=== PATIENT | male | born 1950 | race Caucasian/White ===

== ENCOUNTER 2018-11-03 09:25 | Observation (INO) ==
[2018-11-03] MEDS ORDERED: ONDANSETRON 4 MG/2 ML VIAL ONE (09:36)
[2018-11-03] MEDS ORDERED: HYDROmorphone 2 MG/ML VIAL ONE (09:36)
[2018-11-03] MEDS ORDERED: 0.9 % SODIUM CHLORIDE 1,000 ML IV ONE (09:44)
[2018-11-03] MEDS ORDERED: ONDANSETRON 4 MG/2 ML VIAL IV ONE (09:44)
[2018-11-03] MEDS ORDERED: HYDROmorphone 2 MG/ML VIAL IV SCH ×2 (09:45→10:00)
[2018-11-03] MEDS ORDERED: KETOROLAC 15 MG/ML VIAL IV ONE (10:06)
--- NOTE | 2018-11-03 10:19 | Emergency Department Note ---
Abdominal Pain HPI - General Chief Complaint: Flank Pain Stated Complaint: Left flank pain Time Seen by Provider: 11/03/18 09:34 Source: patient Mode of arrival: ambulatory Limitations: no limitations - History of Present Illness HPI Narrative: This pleasant 67-year-old male comes emergency room with left flank pain onset around 6:30 AM. He vomited once at home and had some dry heaves here. It feels like his previous stones. He has had lithotripsy a couple of different times. He is tried to drink a lot of water. His urine was dark but not specifically red or pink. Pain radiates some from the left flank into the lateral anterior upper abdomen; none into the groin at this time. REVIEW OF SYSTEMS: No fevers, chills, sweats, chest pain, shortness of breath, diarrhea, constipation, headaches, weakness, dizziness, anxiety, depression. - Related Data Home Medications Medication Instructions Recorded Confirmed CPAP machine, 12cm H2O pressure 1 unit .ROUTE HS 07/18/18 11/03/18 Previous Rx's Medication Instructions Recorded Tamsulosin [Flomax] 0.4 mg PO HS #30 cap 11/04/18 ondansetron HCl 4 mg tablet 4 mg PO TID PRN 5 Days #20 tab 11/04/18 oxycodone-acetaminophen 10 mg-325 1 tab PO Q4H PRN #30 tab 11/04/18 mg tablet Allergies Allergy/AdvReac Type Severity Reaction Status Date / Time No Known Drug Allergies Allergy Verified 11/03/18 09:29 Abdominal Pain PMH - Past Medical History [facility] Narrative: Medical History (Last Updated 11/03/18 @ 10:21 by Jefferson Mcfarlane DO) Hypertension, essential (Chronic) Sleep apnea (Chronic) Obesity (Chronic) Renal calculi (Chronic 11/17/13) Cholelithiasis and cholecystitis without obstruction (Chronic) Degenerative arthritis of right knee (Chronic) Impotence, 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) Gout (Chronic) Diverticulosis of colon (Chronic) Benign prostatic hyperplasia (BPH) with urinary urgency (Chronic 11/10/13) History of colonic polyps (Chronic) Chronic vasomotor rhinitis (Chronic) Hearing loss (Chronic) Kidney stones (Resolved) Renal cyst (Resolved 11/17/13) Past Surgical History (Last Updated 11/03/18 @ 10:04 by Jefferson Mcfarlane DO) Status post anterior cruciate ligament surgery (Acute) History of cholecystectomy (Acute) History of colonoscopy (Resolved 08/11/13) History of surgery (Resolved) Family History (Last Reviewed 07/31/18 @ 15:03 by Sindi Jefferson CMA) Unknown Atherosclerosis of coronary artery Maternal Grandfather Cardiac abnormality Maternal Grandmother Cardiac abnormality Father Malignant neoplasm of prostate Calculus of kidney Brother Calculus of kidney Medical history: Denies: CVA, DVT, DM, myocardial infarction, pulmonary embolus, TIA Psychiatric history: Denies: anxiety, depression - Social History Smoking status: Former smoker (quit 2012) Alcohol use: Reports: None Drug use: Reports: none. Denies: marijuana Physical Exam Limitations: no limitations General appearance: alert, in no apparent distress, other (Recurringly reporting rather severe pain.) Head: atraumatic, normocephalic Eye: Present: EOMI Neck: Present: trachea midline. Absent: lymphadenopathy, thyromegaly Chest: Present: symmetric chest wall rise Respiratory: Present: normal lung sounds bilaterally. Absent: respiratory distress, wheezes, stridor, accessory muscle use, prolonged expiratory phase Cardiovascular: Present: regular rate, normal rhythm. Absent: systolic murmur, diastolic murmur Abdominal: Present: soft, tenderness (Subjectively). Absent: distention, guarding, rebound, rigidity, organomegaly, mass Abdominal tenderness: Present: LLQ, mild, moderate Extremities: Absent: pedal edema, pretibial edema, calf tenderness Back: Present: CVA tenderness (L) (Mildly). Absent: CVA tenderness (R), spinous process tenderness Neurological: Present: alert, oriented X3 Psychiatric: Present: serious Skin: Present: warm, dry Course Vital Signs Temperature 97.6 F 11/03/18 09:26 Pulse Rate 83 11/03/18 09:26 Respiratory Rate 18 11/03/18 09:26 Blood Pressure 204/98 11/03/18 09:26 Pulse Oximetry (%) 95 11/03/18 09:26 Temperature 97.5 F 11/04/18 09:13 Pulse Rate 85 11/04/18 09:13 Respiratory Rate 16 11/04/18 09:13 Blood Pressure 128/73 11/04/18 09:13 Pulse Oximetry (%) 94 11/04/18 09:13 Abdominal Pain - MDM Narrative Medical decision making narrative: 10:05 AM - onset of pain this morning in the left flank with some radiation and similarities to previous kidney stones. CT scan recently showed a 12 mm in the left calyx. Because of this and the severity of his pain, we will need to repeat the CT to identify location and size of stone. Repeat CT scan demonstrated a 5 and a 6 mm stone in the proximal left ureter. Mild hydronephrosis probably apparent. Multiple other small stones in each kidney, nonobstructing. 11:55 AM - I spoke with Dr. Bass, urologist, who indicates that if pain can be under control this may be managed conservatively and patient will probably be able to pass the stones. His pain is not under control or persist, he is willing to assist in management and intervention. Patient received 15 mg IV Toradol and hydromorphone, several doses, then Morphine - and still required several doses of morphine. After multiple doses of IV occasion and not able to keep his pain under control, Dr. Bass was contacted again and agrees kindly to accept this patient. Holding orders written for. - Lab Data Lab results reviewed: Yes I reviewed the patient's lab results. Result diagrams: 11/03/18 09:35 11/03/18 09:35 Lab Results 11/03/18 11/03/18 Range/Units 09:35 09:35 WBC 6.6 (4.5-11.0) K/mcL RBC 5.74 (4.50-5.90) M/mcL Hgb 17.7 H (13.5-16.5) g/dL Hct 53.5 (41.0-55.0) % MCV 93.2 (80.0-100.0) fL MCH 30.8 (26.0-34.0) pg MCHC 33.0 (31.0-36.0) g/dL RDW 14.2 (11.5-14.5) % Plt Count 349 (140-440) K/mcL MPV 7.9 (7.4-10.4) fL Gran % 68.4 (38.0-78.0) % Lymph % (Auto) 17.2 (15.5-49.0) % [place] % (Auto) 13.2 H (1.0-12.0) % Eos % (Auto) 0.9 (0.0-7.0) % Baso % (Auto) 0.3 (0.0-2.0) % Gran # 4.5 (1.8-8.0) K/mcL Lymph # (Auto) 1.1 L (1.5-4.8) K/mcL [place] # (Auto) 0.9 (0.1-0.9) K/mcL Eos # (Auto) 0.1 (0.0-0.7) K/mcL Baso # (Auto) 0 (0.0-0.3) K/mcL Sodium 137 (133-145) mmol/L Potassium 3.7 (3.3-5.1) mmol/L Chloride 100 (96-108) mmol/L Carbon Dioxide 27 (22-30) mmol/L Anion Gap 10.0 (8-16) BUN 15 (8-23) mg/dl Creatinine 1.1 (0.7-1.2) mg/dl GFR Calculation 68 Glucose 119 H (70-105) mg/dL Calcium 10.1 (8.6-10.4) mg/dl Total Bilirubin 0.7 (0.0-1.0) mg/dL AST 27 (0-37) U/l ALT 34 (0-40) U/l Alkaline Phosphatase 80 (39-117) U/L C-Reactive Protein < 0.3 (0.0-0.8) mg/dl Total Protein 7.6 (5.9-8.4) gm/dL Albumin 4.4 (3.2-5.2) gm/dL Globulin 3.2 (2.2-3.7) gm/dL Albumin/Globulin Ratio 1.4 (1.0-2.3) - Radiology Data Radiology results reviewed: Yes I reviewed the patient's radiology results. Disposition Pt seen by PAINTINGS RESTORER/PA only: No Clinical Impression: Kidney stones, Ureteral colic Disposition: Xfer As Outpt/Obs ([facility]) Condition: Good
--- NOTE | 2018-11-03 10:41 | Cat Scan Report ---
CLINICAL INFORMATION: Left flank pain. History of urolithiasis TECHNIQUE: Axial noncontrast enhanced images through the abdomen and pelvis. Sagittal and coronal reformatted images COMPARISON: Previous examination dated 07/23/2018, 07/12/2018, 06/18/2018 FINDINGS: Multiple renal calculi bilaterally. There are multiple stones in the mid and lower pole collecting systems bilaterally. These are unchanged. There is a 2.2 cm left mid pole cyst and a 3.5 cm left lower pole cyst. There is mild dilatation of the left renal pelvis and proximal ureter. There is a 5 mm stone or stones in the proximal left ureter at the L4 level. There is a 6 mm calculus in the proximal left ureter at the L4-5 level. No right hydronephrosis or hydroureter. No bladder calculus. Lung bases are negative. No parenchymal infiltrate or mass. No pleural fluid. No pericardial fluid. Liver is negative to the limits of noncontrast enhanced examination. No detectable mass. Liver contour is smooth. No evidence for cirrhosis. There is no ascitic fluid. There are surgical clips in the gallbladder fossa. Pancreas is atrophic. No pancreatic mass. No peripancreatic abnormality. Negative spleen. No significant splenomegaly. Adrenal glands are negative. There is diverticulosis in the distal descending colon and sigmoid colon. No significant diverticulitis. No detectable colonic mass. Examination is negative for appendicitis. There is no mechanical small bowel obstruction. No retroperitoneal or mesenteric adenopathy. There is no inguinal or anterior abdominal wall hernia There is calcification of the abdominal aorta. No abdominal aortic aneurysm. No free intraperitoneal fluid. No focal fluid collection. No pneumoperitoneum. No biliary or portal venous gas. No pneumatosis. No lumbar compression fracture. No lytic lesion. There is multilevel degenerative disc disease. There is multilevel degenerative facet arthropathy. Sacrum and pelvis are negative IMPRESSION: 1. Multiple nonobstructing renal calculi bilaterally. Left renal cysts are benign and stable 2. 6 mm obstructing calculus in the proximal left ureter at the L4-5 level. 5 mm stone or stone slightly more proximal in the left ureter 3. Diverticulosis. No evidence for diverticulitis 4. Multilevel degenerative disc disease Interpreted and Authenticated by: Sunil Moran 11/03/18
[2018-11-03 11:01] LABS: Basophils # (Auto) 0 K/mcL (0.0-0.3); Basophils % (Auto) 0.3 % (0.0-2.0); Eosinophils # (Auto) 0.1 K/mcL (0.0-0.7); Eosinophils % (Auto) 0.9 % (0.0-7.0); Granulocytes % (Auto) 68.4 % (38.0-78.0); Lymphocytes # (Auto) 1.1 K/mcL (1.5-4.8); Lymphocytes % (Auto) 17.2 % (15.5-49.0); Mean Cell Volume 93.2 fL (80.0-100.0); Monocytes # (Auto) 0.9 K/mcL (0.1-0.9); Monocytes % (Auto) 13.2 % (1.0-12.0); Platelet Count 349 K/mcL (140-440); RBC 5.74 M/mcL (4.50-5.90); Red Cell Distribution Width 14.2 % (11.5-14.5)
[2018-11-03 11:21] LABS: ALT/SGPT 34 U/l (0-40); Albumin 4.4 gm/dL (3.2-5.2); Albumin/Globulin Ratio 1.4 (1.0-2.3); Alkaline Phosphatase 80 U/L (39-117); Blood Urea Nitrogen 15 mg/dl (8-23); C-Reactive Protein < 0.3 mg/dl (0.0-0.8)
[2018-11-03] MEDS ORDERED: ACETAMINOPHEN 325 MG TABLET PO PRN (14:22)
[2018-11-03] MEDS ORDERED: PROMETHAZINE 25 MG/ML VIAL IV PRN (14:22)
[2018-11-03] MEDS ORDERED: NALOXONE HCL 0.4 MG/ML VIAL IV PRN (14:22)
[2018-11-03] MEDS: 0.45 % SODIUM CHLORIDE 1,000 ML IV SCH ×2 (15:51→22:50)
--- NOTE | 2018-11-03 18:43 | History and Physical Report ---
DATE OF ADMISSION: 11/03/2018 ADMITTING DIAGNOSIS: Left ureteral stones. HISTORY OF PRESENT ILLNESS: Mr. Gilbert is a 67-year-old gentleman with a long history of stones. It was thought that he had hypoparathyroidism, and he has been worked up for this, but his parathyroid level was normal. Today, he had sudden onset of left flank pain around 6:30 a.m., had nausea and vomiting. This feels similar to stones he has had before. He has had lithotripsy in the past. He will be seen in the emergency room where his pain was not being able to be controlled. A CT scan does show a 5 and 6 mm stone in the upper left ureter and also stones in bilateral kidneys. He does have some difficulty in urinating, and he presents now for pain control. PAST MEDICAL HISTORY: Significant for renal stones, gallstones, hypertension, sleep apnea, obesity, BPH, and hearing loss. PAST SURGICAL HISTORY: He has an anterior cruciate repair, cholecystectomy, and lithotripsy. FAMILY HISTORY: Atherosclerosis, prostate cancer, and cardiac problems. SOCIAL HISTORY: Quit smoking, no alcohol use. ALLERGIES: NONE. CURRENT MEDICATIONS: CPAP. REVIEW OF SYSTEMS: CARDIAC: Denies any chest pain. No history of [place]. PSYCHIATRIC: No depression or mood swings. GASTROINTESTINAL: No constipation, no problems with bowel movements. The rest of review of systems is negative. The rest of 14-point review of systems is negative. PHYSICAL EXAMINATION: GENERAL: This is a pleasant gentleman in slight distress. VITAL SIGNS: Are listed per nurse's notes. HEENT: Atraumatic, normocephalic. Extraocular movements are intact. NECK: Supple. Trachea is midline. No mucosal lesions are noted. LUNGS: Clear to auscultation. HEART: Regular rate and rhythm. ABDOMEN: Soft. Positive left CVA tenderness. GENITOURINARY: Normal male phallus. Testicles are down in normal position. No hernias are noted. EXTREMITIES: Without clubbing, cyanosis, or edema. NEUROLOGIC: Alert and oriented times 3. Cranial nerves II-XII intact. IMPRESSION: The patient with a mid ureter stone. I have talked to him about the options. At this point, he is fairly comfortable, but I feel we should observe him overnight. I will start him on a GARDE MANAGER, on Flomax, and see if he will tolerate this. In the morning, we will reevaluate, possibly go to surgery or possibly send him home with oral pain medications. I have discussed this with the patient. He understands, and we will plan to follow up as outlined. CELIO:crow Job ID: [id number] Doc ID: [id number] Rudolph Bass MD
[2018-11-03] MEDS: CIPROFLOXACIN 500 MG TABLET PO SCH (20:46)
[2018-11-03] MEDS ORDERED: TAMSULOSIN 0.4 MG CAPSULE PO SCH (21:00)
[2018-11-03] MEDS ORDERED: [UNRECOGNIZED DRUG - OTHER] SCH (21:00)
[2018-11-03] MEDS ORDERED: CPAP MACHINE SCH (21:00)
[2018-11-04] MEDS: 0.45 % SODIUM CHLORIDE 1,000 ML IV SCH (05:16)
--- NOTE | 2018-11-04 07:03 | Discharge Plan ---
Discharge Plan - Patient/Caregiver Discharge Instructions Activity: resume usual activities as tolerated Diet: Regular Diet Additional Instructions: strain urine Prescriptions: Tamsulosin [Flomax] 0.4 mg PO HS #30 cap - Follow up Plan Follow up with: Jose Raul Lizama MD [Primary Care Provider] - Disposition: Home, Self-Care Prognosis: Good Rehab Potential: Good Overall status at discharge: patient is back to baseline
--- NOTE | 2018-11-04 07:04 | General Surgery Progress Note ---
Subjective Patient reports: feels better, pain is less, tolerating liquids well Narrative: Note initiated : 11/04/18 at 7:03 am Service Date, if different from initiated Date: [] Patient: Marcus Gilbert 67 y/o M admitted on 11/03/18 for Left flank pain. Chief Complaint: [] patient doing well. will d/c to home f/u as outpatient. Objective Temp Pulse Resp BP Pulse Ox 98.9 F 76 16 112/68 95 11/04/18 04:00 11/04/18 04:00 11/04/18 04:00 11/04/18 04:00 11/04/18 04:00 - Additional Data Intake & Output - Last 24 hours: Intake & Output 11/02/18 11/03/18 11/04/18 11/05/18 05:59 05:59 05:59 05:59 Intake Total 2965 Output Total 1580 Balance 1385 Weight 223 lb - Labs 11/03/18 09:35 11/03/18 09:35 Diabetes panel 11/03/18 Range/Units 09:35 Sodium 137 (133-145) mmol/L Potassium 3.7 (3.3-5.1) mmol/L Chloride 100 (96-108) mmol/L Carbon Dioxide 27 (22-30) mmol/L BUN 15 (8-23) mg/dl Creatinine 1.1 (0.7-1.2) mg/dl Glucose 119 H (70-105) mg/dL Calcium 10.1 (8.6-10.4) mg/dl AST 27 (0-37) U/l ALT 34 (0-40) U/l Alkaline Phosphatase 80 (39-117) U/L Total Protein 7.6 (5.9-8.4) gm/dL Albumin 4.4 (3.2-5.2) gm/dL Calcium panel 11/03/18 Range/Units 09:35 Calcium 10.1 (8.6-10.4) mg/dl Albumin 4.4 (3.2-5.2) gm/dL Pituitary panel 11/03/18 Range/Units 09:35 Sodium 137 (133-145) mmol/L Potassium 3.7 (3.3-5.1) mmol/L Chloride 100 (96-108) mmol/L Carbon Dioxide 27 (22-30) mmol/L BUN 15 (8-23) mg/dl Creatinine 1.1 (0.7-1.2) mg/dl Glucose 119 H (70-105) mg/dL Calcium 10.1 (8.6-10.4) mg/dl Adrenal panel 11/03/18 Range/Units 09:35 Sodium 137 (133-145) mmol/L Potassium 3.7 (3.3-5.1) mmol/L Chloride 100 (96-108) mmol/L Carbon Dioxide 27 (22-30) mmol/L BUN 15 (8-23) mg/dl Creatinine 1.1 (0.7-1.2) mg/dl Glucose 119 H (70-105) mg/dL Calcium 10.1 (8.6-10.4) mg/dl Total Bilirubin 0.7 (0.0-1.0) mg/dL AST 27 (0-37) U/l ALT 34 (0-40) U/l Alkaline Phosphatase 80 (39-117) U/L Total Protein 7.6 (5.9-8.4) gm/dL Albumin 4.4 (3.2-5.2) gm/dL Assessment and Plan - Time Spent With Patient Total time spent is greater than 50% in coordination of care (as documented) at patient's floor/unit and/or counseling patient:
[2018-11-04] MEDS: CIPROFLOXACIN 500 MG TABLET PO SCH (08:09)
== END 2018-11-04 09:13 | disposition home or self-care (01) ==
LOC: MEDSUR 09:25 → ED 09:25 → MEDSUR 15:45

== ENCOUNTER 2022-11-23 01:43 | Inpatient (IN) ==
[2022-11-23] MEDS ORDERED: 0.9 % SODIUM CHLORIDE 1,000 ML IV ONE ×2 (01:50→01:51)
[2022-11-23] MEDS ORDERED: KETOROLAC 30 MG/ML VIAL IV ONE (01:51)
[2022-11-23] MEDS ORDERED: ONDANSETRON 4 MG/2 ML VIAL IV ONE (01:58)
[2022-11-23 02:03] LABS: POC Calcium, Ionized 1.32 (1.16-1.32); POC Creatinine 1.3 (0.6-1.2); POC Potassium 3.6 (3.3-5.1)
--- NOTE | 2022-11-23 02:12 | Emergency Department Note ---
Male Urogenital HPI General Chief complaint: Flank Pain Stated complaint: Flank pain Time Seen by Provider: 11/23/22 01:51 Source: patient Mode of arrival: ambulatory Limitations: no limitations History of Present Illness HPI Narrative: Narrative: Patient presents to ED with complaints of flank pain since 4:00 yesterday. Patient states it is on his right side and he rates the pain 7/10. Patient states he believes he has another kidney stone. He has long history of repeat kidney stones. He states he has had lithotripsy in the past as well as shock therapy. He states he tried to drink a lot of water to get the stone to pass but it did not really help throughout the day. He reports some associated nausea and vomited 1 time. He denies fever, chills, dysuria, hematuria, urinary frequency, diarrhea, constipation. Patient denies any other alleviating or aggravating factors. Related Data Home Medications Medication Instructions Recorded Confirmed CPAP machine, 12cm H2O pressure 1 unit .Route HS 07/18/18 08/01/22 aspirin 81 mg tablet,delayed 81 mg PO QDAY 07/31/21 08/01/22 release atorvastatin 40 mg tablet 40 mg PO QAM 07/31/21 08/01/22 metoprolol succinate 25 mg 25 mg PO QAM 07/31/21 08/01/22 tablet,extended release 24 hr cholecalciferol (vitamin D3) 50 50 mcg PO QDAY 08/23/21 08/01/22 mcg (2,000 unit) capsule (Vitamin D3) hydrochlorothiazide 12.5 mg tablet 12.5 mg PO QAM 08/23/21 08/01/22 multivitamin 1 tab PO QAM 08/23/21 08/01/22 turmeric 400 mg capsule 1,500 mg PO QDAY 08/23/21 08/01/22 zinc 50 mg tablet 50 mg PO QDAY 08/23/21 08/01/22 Previous Rx's Medication Instructions Recorded tamsulosin 0.4 mg capsule 0.4 mg PO HS #30 caps 02/14/22 Allergies Allergy/AdvReac Type Severity Reaction Status Date / Time No Known Drug Allergies Allergy Verified 11/23/22 01:49 Review of Systems ROS ROS Narrative: Narrative: All systems ED: reviewed and negative except as stated. 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) Renal calculi (Chronic 11/17/13) Sleep apnea (Chronic) Degenerative arthritis of right knee (Chronic) Obesity (Chronic) Chronic vasomotor rhinitis (Chronic) Cholelithiasis and cholecystitis without obstruction (Chronic) Hypertension, essential (Chronic) Hearing loss (Chronic) Kidney stones (Acute) Ureteral colic (Acute) Ureteral stone with hydronephrosis (Acute) Acute kidney injury (Acute) Chest pain (Acute) BPH w urinary obs/LUTS (Chronic) Prostate cancer screening (Acute) Right flank pain (Acute) Elevated PSA, less than 10 ng/ml (Acute) Hydronephrosis, right (Chronic) Ureteral stricture (Chronic) Abdominal pain (Acute) Gross hematuria (Acute) Calculus of right ureter (Acute) Hydronephrosis, right (Acute) Leukocytosis (Acute) Medical History Benign prostatic hyperplasia (BPH) with urinary urgency (11/10/13) Cholelithiasis and cholecystitis without obstruction Chronic vasomotor rhinitis Degenerative arthritis of right knee Diverticulosis of colon Gout Hearing loss History of colonic polyps Hydronephrosis, right Hypertension, essential Impotence, organic (11/10/13) Kidney stones Obesity BMI 36 2--2019 Renal calculi (11/17/13) Renal cyst (11/17/13) Sleep apnea Surgical History History of cholecystectomy 07/18/2018-open cholecystectomy with control of bleeding History of colonoscopy (08/11/13) TA, HP History of surgery Lithotripsy Status post anterior cruciate ligament surgery Family History Unknown Atherosclerosis of coronary artery Maternal Grandfather Cardiac abnormality pacemaker - gm, acute NC - gf Maternal Grandmother Cardiac abnormality Father Malignant neoplasm of prostate Calculus of kidney Brother Calculus of kidney Social History Smoking Status: Never smoker Alcohol Intake Frequency: does not drink Exam Narrative Narrative: Narrative: General Limitations: no limitations General appearance: Absent in distress Respiratory Respiratory: Present normal lung sounds bilaterally; Absent respiratory distress Cardiovascular Cardiovascular: Present regular rate and normal rhythm Adbominal Abdominal: Present soft; Absent tenderness Back Back: Present CVA tenderness (R); Absent CVA tenderness (L) Neurological Neurological: Present oriented X3 and normal gait Psychiatric Psychiatric: Present normal affect and normal mood Skin Skin: Present warm (WNL) and intact Course Course Course Narrative: Patient was evaluated for right-sided flank pain. UA did show some blood. Patient was given IV fluids, morphine, Toradol and Zofran and his pain was controlled. CT abdomen pelvis obtained with image reviewed myself which shows 2 right ureter stones measuring 7 mm and 10 mm. Patient also has severe hydronephrosis based upon CT. Patient with elevated white cell count but had a normal lactic acid. Blood cultures were obtained and patient was given some IV Rocephin as patient could have a possible infected kidney stone. Patient normally follows with Dr. Mac but unfortunately we do not have a urologist vice president of communications. Patient wanted to wait to see if Dr. Mac was in town so he therefore is denying transfer to an outside facility that has urological services at this time. The plan is to keep patient comfortable through the night. We will call Dr. Mac's office in the morning to see if he is willing to evaluate the patient in the ED. If Dr. Mac is not in the office patient states that he would then consider transfer to an outside facility. Case will be signed out to Dr. Muller pending communication with with Dr. Mac to determine final disposition. Reevaluation(s) Reevaluation #1: Patient remains hemodynamically stable. No new complaints at this time. Time: 03:01 Vital Signs Vital signs: Vital Signs Temperature 96.9 F L 11/23/22 01:45 Pulse Rate 82 11/23/22 01:45 Respiratory Rate 14 11/23/22 01:45 Blood Pressure 173/95 11/23/22 01:45 Pulse Oximetry (%) 94 11/23/22 01:45 Oxygen Delivery Method Room Air 11/23/22 01:45 Temperature 96.9 F L 11/23/22 01:45 Pulse Rate 81 11/23/22 06:01 Respiratory Rate 14 11/23/22 01:45 Blood Pressure 149/72 11/23/22 06:01 Pulse Oximetry (%) 94 11/23/22 06:01 Oxygen Delivery Method Room Air 11/23/22 01:45 MDM MDM Narrative Medical decision making narrative: Narrative: Differential Diagnosis Differential Diagnosis: UTI, kidney stone Medical Records Medical records reviewed: Yes I reviewed the patient's medical records. Lab Data Lab results reviewed: Yes I reviewed the patient's lab results. 11/23/22 02:26 Labs: Lab Results 11/23/22 11/23/22 11/23/22 Range/Units 01:58 02:26 03:51 WBC 16.8 H (4.5-11.0) K/mcL RBC 5.46 (4.63-6.08) M/mcL Hgb 16.8 (13.7-17.5) g/dL Hct 49.9 (40.1-51.0) % POC Hct 53.0 (41-55) MCV 91.4 (80.0-100.0) fL MCH 30.8 (26.0-34.0) pg MCHC 33.7 (31.0-36.0) g/dL RDW 13.4 (11.5-14.5) % Plt Count 332 (140-440) K/mcL MPV 9.4 (8.8-12.5) fL Immature Gran % (Auto) 0.4 (0.0-0.5) % Neut % (Auto) 84.3 H (38.0-78.0) % Lymph % (Auto) 4.8 L (15.5-49.0) % [place] % (Auto) 10.1 (1.0-12.0) % Eos % (Auto) 0.1 (0.0-7.0) % Baso % (Auto) 0.3 (0.0-2.0) % Lymph # (Auto) 0.81 L (1.50-4.80) K/mcL [place] # (Auto) 1.69 H (0.10-0.90) K/mcL Eos # (Auto) 0.01 (0.00-0.70) K/mcL Baso # (Auto) 0.05 (0.00-0.30) K/mcL Immature Gran # 0.07 H (0.00-0.05) K/mcl Absolute Neutrophils 14.16 H (1.80-8.00) K/mcL POC VBG pH 7.38 (7.32-7.42) POC VBG pCO2 at Temp 40.1 L (41-51) POC VBG pO2 62 H (25-40) POC VBG HCO3 23.9 L (24-28) POC VBG Total CO2 25.0 (25-29) POC Venous O2 Sat 91.0 H (40-70) POC VBG Base Excess -1.0 (-2-2) VBG Lactic Acid 0.8 (0.5-2) POC Sodium 136 (133-145) POC Potassium 3.6 (3.3-5.1) POC Chloride 101 (96-108) POC Total CO2 24.0 (22-30) POC BUN 24 H (6-20) POC Creatinine 1.3 H (0.6-1.2) POC Glucose 130 H (70-105) POC WB Ioniz Calcium 1.32 (1.16-1.32) Radiology Data Radiology results reviewed: Yes I reviewed the patient's radiology results. Radiology results narrative: Pelvis obtained with image reviewed myself, agree with radiologist interpretation Core Measures AMI Core Measures Followed: Yes Discharge Plan Patient/Caregiver Discharge Instructions Pt seen by EXECUTIVE VP/PA only: No Clinical Impression: Calculus of right ureter, Hydronephrosis, right, Leukocytosis Patient Disposition: Still a Patient Condition: Fair Follow up with: Jose Raul Lizama MD [Primary Care Provider] - Prescriptions: No Action tamsulosin 0.4 mg capsule 0.4 mg PO HS Qty: 30 12RF Patient Comments: currently not taking (took a "few" times after last surgery) CPAP machine, 12cm H2O pressure 1 unit .Route HS Rx Instructions: use to prevent sleep apnea multivitamin Tablet 1 tab PO QAM zinc 50 mg Tablet 50 mg PO QDAY hydrochlorothiazide 12.5 mg tablet 12.5 mg PO QAM cholecalciferol (vitamin D3) [Vitamin D3] 50 mcg (2,000 unit) Capsule 50 mcg PO QDAY turmeric 400 mg Capsule 1,500 mg PO QDAY atorvastatin 40 mg tablet 40 mg PO QAM metoprolol succinate 25 mg tablet extended release 24 hr 25 mg PO QAM aspirin 81 mg tablet,delayed release (DR/EC) 81 mg PO QDAY
--- NOTE | 2022-11-23 02:49 | Cat Scan Report ---
CLINICAL INFORMATION: Right flank pain. History of stones COMPARISON: Abdomen and pelvic CT 06/03/2019 TECHNIQUE: 0.625 mm helical slices were obtained from the mid heart through the subtrochanteric regions. Following reconstruction, 2.5 mm sagittal, coronal and axial reformatted images were processed and reviewed at bone and soft tissue windows.The exam was performed using radiation dose optimization techniques including, but not limited to, automated exposure control, adjustment of the mA and/or kV according to patient size and use of iterative reconstruction technique. FINDINGS: The lung bases show scattered subsegmental atelectasis and/or fibrosis. There are no effusions. The visualized heart is mildly enlarged with moderate calcific plaque in the proximal LAD and scattered within the remaining coronary arteries. Abdominal images show cholecystectomy changes. Intrahepatic and common bile ducts are normal caliber: CBD is 6 mm. The noncontrasted liver, both adrenal glands and spleen are normal. Marked pancreatic atrophy with fat replacement seen as before. Aorta is normal in diameter. There is no free air, free fluid or adenopathy. Both noncontrasted kidneys are normal in size, position, configuration and attenuation: The right is 12.9 cm in length and the left is 11.6 cm in length. There are two stones in the distal right ureter, at the iliac crossing, 10 mm and 7 mm respectively. These result in severe hydroureter/hydronephrosis, right renal edema edema with perinephric stranding.. A collection of small stones layering dependently within the inferior calyces of the right kidney seen as before. There are two nonobstructing stones in the inferior calyx left kidney both less than 3 mm. Bilateral renal cysts are stable. Urinary bladder contains a small amount of urine with multiple small stones present ranging up to 4 mm in the urinary bladder base. Prostate and seminal vesicles are normal. Multiple sigmoid diverticula appreciated no evidence of diverticulitis. The remaining large bowel, medial pericecal appendix, small bowel and stomach are grossly normal. Bone windows show degeneration lumbar spine no focal osseous lesions. IMPRESSION: 1. Two stones in distal right ureter, at the common iliac crossing, 10 mm and 7 mm respectively. It results in severe right hydroureter/hydronephrosis and right renal edema. Multiple small stones layering within a inferior calyx of the right kidney and nonobstructing stones within the left kidney noted. 5-6 small stones seen dependently within the urinary bladder base which may been expelled. 2. Severe pancreatic atrophy. 3. Sigmoid diverticulosis no evidence of diverticulitis. Interpreted and Authenticated by: Sunil Muñoz 11/23/22
[2022-11-23 03:00] LABS: Basophils # (Auto) 0.05 K/mcL (0.00-0.30); Basophils % (Auto) 0.3 % (0.0-2.0); Eosinophils # (Auto) 0.01 K/mcL (0.00-0.70); Eosinophils % (Auto) 0.1 % (0.0-7.0); Hematocrit 49.9 % (40.1-51.0); Hemoglobin 16.8 g/dL (13.7-17.5); Lymphocytes # (Auto) 0.81 K/mcL (1.50-4.80); Lymphocytes % (Auto) 4.8 % (15.5-49.0); Mean Cell Volume 91.4 fL (80.0-100.0); Mean Corpuscular HGB Conc 33.7 g/dL (31.0-36.0); Mean Platelet Volume 9.4 fL (8.8-12.5); Monocytes # (Auto) 1.69 K/mcL (0.10-0.90); Monocytes % (Auto) 10.1 % (1.0-12.0); Neutrophils % (Auto) 84.3 % (38.0-78.0); Platelet Count 332 K/mcL (140-440); RBC 5.46 M/mcL (4.63-6.08); Red Cell Distribution Width 13.4 % (11.5-14.5); WBC 16.8 K/mcL (4.5-11.0)
[2022-11-23] MEDS ORDERED: morphine 2 MG/ML VIAL IV PRN (03:16)
[2022-11-23] MEDS ORDERED: cefTRIAXone 2 GM in DEXTROSE 5% IN WATER 50 ML IV ONE (03:16)
[2022-11-23 07:34] LABS: Appearance,Urine HAZY (Clear); Bacteria,Urine FEW /hpf (0); Bilirubin,Urine Negative (Negative); Color,Urine YELLOW; Culture Indicated,Urine yes; Glucose,Urine (UA) 150 mg/dL (Negative); Ketones,Urine 5 mg/dL (Negative); Leukocyte Esterase,Urine 500 /uL (Negative); Mucus,Urine FEW /hpf; Nitrate,Urine Negative (Negative); Protein,Urine Negative (Negative); Specific Gravity,Urine 1.017 (1.000-1.035); Urine RBC 16 /hpf (0-3); Urine Squamous Epithelial Cell < 1 /hpf (0-4); Urine WBC 77 /hpf (0-4); Urobilinogen,Urine Negative
[2022-11-23] MEDS ORDERED: ONDANSETRON 4 MG/2 ML VIAL IV PRN ×3 (08:20→12:37)
--- NOTE | 2022-11-23 08:20 | Emergency Department Note ---
Course Course Course Narrative: Patient is a 71-year-old male who was signed out to me by Dr. Anne. Patient was found to have 2 right-sided kidney stones of 7 and 10 mm with severe hydronephrosis. There were also concerns for urinary tract infection, so patient received ceftriaxone. Patient requested that we speak to Dr. Mac prior to considering a transfer, but patient was told that we do not have a urologist that are on-call at this time. Because Dr. Mac's office was not open this did not happen last night. Call to Dr. Mac was pending at time of signout. Vital Signs Vital signs: Vital Signs Temperature 96.9 F L 11/23/22 01:45 Pulse Rate 82 11/23/22 01:45 Respiratory Rate 14 11/23/22 01:45 Blood Pressure 173/95 11/23/22 01:45 Pulse Oximetry (%) 94 11/23/22 01:45 Oxygen Delivery Method Room Air 11/23/22 01:45 Temperature 96.9 F L 11/23/22 01:45 Pulse Rate 77 11/23/22 07:01 Respiratory Rate 14 11/23/22 01:45 Blood Pressure 141/67 11/23/22 07:01 Pulse Oximetry (%) 95 11/23/22 07:01 Oxygen Delivery Method Room Air 11/23/22 01:45 MDM MDM Narrative Medical decision making narrative: Narrative: Patient is a 71-year-old male who presents to the emergency department due to pain related to kidney stones found on imaging. As stated above patient has received antibiotics, and has also received fluids. Dr. Mac is unfortunately out of town, but I have spoken to Dr. Quiroz. He is leaving [facility], but has stated that he would be willing to perform the procedure this afternoon if the hospitalist team is willing to admit and watch patient. I have spoken to Dr. Jones. He has stated that he is willing to watch patient overnight. Patient will be admitted at this time. Lab Data 11/23/22 02:26 Labs: Lab Results 11/23/22 11/23/22 11/23/22 Range/Units 01:58 02:26 03:00 WBC 16.8 H (4.5-11.0) K/mcL RBC 5.46 (4.63-6.08) M/mcL Hgb 16.8 (13.7-17.5) g/dL Hct 49.9 (40.1-51.0) % POC Hct 53.0 (41-55) MCV 91.4 (80.0-100.0) fL MCH 30.8 (26.0-34.0) pg MCHC 33.7 (31.0-36.0) g/dL RDW 13.4 (11.5-14.5) % Plt Count 332 (140-440) K/mcL MPV 9.4 (8.8-12.5) fL Immature Gran % (Auto) 0.4 (0.0-0.5) % Neut % (Auto) 84.3 H (38.0-78.0) % Lymph % (Auto) 4.8 L (15.5-49.0) % [place] % (Auto) 10.1 (1.0-12.0) % Eos % (Auto) 0.1 (0.0-7.0) % Baso % (Auto) 0.3 (0.0-2.0) % Lymph # (Auto) 0.81 L (1.50-4.80) K/mcL [place] # (Auto) 1.69 H (0.10-0.90) K/mcL Eos # (Auto) 0.01 (0.00-0.70) K/mcL Baso # (Auto) 0.05 (0.00-0.30) K/mcL Immature Gran # 0.07 H (0.00-0.05) K/mcl Absolute Neutrophils 14.16 H (1.80-8.00) K/mcL POC VBG pH (7.32-7.42) POC VBG pCO2 at Temp (41-51) POC VBG pO2 (25-40) POC VBG HCO3 (24-28) POC VBG Total CO2 (25-29) POC Venous O2 Sat (40-70) POC VBG Base Excess (-2-2) VBG Lactic Acid (0.5-2) POC Sodium 136 (133-145) POC Potassium 3.6 (3.3-5.1) POC Chloride 101 (96-108) POC Total CO2 24.0 (22-30) POC BUN 24 H (6-20) POC Creatinine 1.3 H (0.6-1.2) POC Glucose 130 H (70-105) POC WB Ioniz Calcium 1.32 (1.16-1.32) Urine Color Yellow Urine Appearance Hazy A (Clear) Urine pH 5.0 (5.0-9.0) Ur Specific [place] 1.017 (1.000-1.035) Urine Protein Negative (Negative) mg/dL Urine Glucose (UA) 150 A (Negative) mg/dL Urine Ketones 5 A (Negative) mg/dL Urine Occult Blood 0.20 (Negative) mg/dL Urine Nitrate Negative (Negative) Urine Bilirubin Negative (Negative) mg/dL Urine Urobilinogen Negative mg/dL Ur Leukocyte Esterase 500 A (Negative) /uL Urine RBC 16 H (0-3) /hpf Urine WBC 77 H (0-4) /hpf Ur Squamous Epith Cells < 1 (0-4) /hpf Urine Bacteria Few A (0) /hpf Urine Mucus Few A (None) /hpf Ur Culture Indicated? yes 11/23/22 Range/Units 03:51 WBC (4.5-11.0) K/mcL RBC (4.63-6.08) M/mcL Hgb (13.7-17.5) g/dL Hct (40.1-51.0) % POC Hct (41-55) MCV (80.0-100.0) fL MCH (26.0-34.0) pg MCHC (31.0-36.0) g/dL RDW (11.5-14.5) % Plt Count (140-440) K/mcL MPV (8.8-12.5) fL Immature Gran % (Auto) (0.0-0.5) % Neut % (Auto) (38.0-78.0) % Lymph % (Auto) (15.5-49.0) % [place] % (Auto) (1.0-12.0) % Eos % (Auto) (0.0-7.0) % Baso % (Auto) (0.0-2.0) % Lymph # (Auto) (1.50-4.80) K/mcL [place] # (Auto) (0.10-0.90) K/mcL Eos # (Auto) (0.00-0.70) K/mcL Baso # (Auto) (0.00-0.30) K/mcL Immature Gran # (0.00-0.05) K/mcl Absolute Neutrophils (1.80-8.00) K/mcL POC VBG pH 7.38 (7.32-7.42) POC VBG pCO2 at Temp 40.1 L (41-51) POC VBG pO2 62 H (25-40) POC VBG HCO3 23.9 L (24-28) POC VBG Total CO2 25.0 (25-29) POC Venous O2 Sat 91.0 H (40-70) POC VBG Base Excess -1.0 (-2-2) VBG Lactic Acid 0.8 (0.5-2) POC Sodium (133-145) POC Potassium (3.3-5.1) POC Chloride (96-108) POC Total CO2 (22-30) POC BUN (6-20) POC Creatinine (0.6-1.2) POC Glucose (70-105) POC WB Ioniz Calcium (1.16-1.32) Urine Color Urine Appearance (Clear) Urine pH (5.0-9.0) Ur Specific [place] (1.000-1.035) Urine Protein (Negative) mg/dL Urine Glucose (UA) (Negative) mg/dL Urine Ketones (Negative) mg/dL Urine Occult Blood (Negative) mg/dL Urine Nitrate (Negative) Urine Bilirubin (Negative) mg/dL Urine Urobilinogen mg/dL Ur Leukocyte Esterase (Negative) /uL Urine RBC (0-3) /hpf Urine WBC (0-4) /hpf Ur Squamous Epith Cells (0-4) /hpf Urine Bacteria (0) /hpf Urine Mucus (None) /hpf Ur Culture Indicated? Discharge Plan Patient/Caregiver Discharge Instructions Pt seen by COMMERCIAL [employer]ST CONTROL TECHNICIAN/PA only: No Clinical Impression: Calculus of right ureter, Hydronephrosis, right, Leukocytosis, Acute UTI Patient Disposition: Xfer As Inpt ([facility]) Condition: Fair Follow up with: Jose Raul Lizama MD [Primary Care Provider] - Prescriptions: No Action tamsulosin 0.4 mg capsule 0.4 mg PO HS Qty: 30 12RF Patient Comments: currently not taking (took a "few" times after last surgery) CPAP machine, 12cm H2O pressure 1 unit .Route HS Rx Instructions: use to prevent sleep apnea multivitamin Tablet 1 tab PO QAM zinc 50 mg Tablet 50 mg PO QDAY hydrochlorothiazide 12.5 mg tablet 12.5 mg PO QAM cholecalciferol (vitamin D3) [Vitamin D3] 50 mcg (2,000 unit) Capsule 50 mcg PO QDAY turmeric 400 mg Capsule 1,500 mg PO QDAY atorvastatin 40 mg tablet 40 mg PO QAM metoprolol succinate 25 mg tablet extended release 24 hr 25 mg PO QAM aspirin 81 mg tablet,delayed release (DR/EC) 81 mg PO QDAY
--- NOTE | 2022-11-23 08:49 | Urology Consult Note ---
HPI Date of Consult Consult Date: 11/23/22 Primary Care Provider: Jose Raul Lizama Consult Narrative Patient Information: Note initiated : 11/23/22 at 8:38 am Service Date, if different from initiated Date: [] Patient: Marcus Gilbert 71 y/o M admitted on for Flank pain. Chief Complaint: [] Mr. Marcus Gilbert is a 71-year-old gentleman who I met for the first time today. Patient states that he began to have right flank pain radiating into the right groin yesterday about 4:00. Pain became worse and he then presented to the emergency room at [facility]. In the emergency room he has been evaluated with laboratory work and CT scan. He has been found to have 2 right distal ureteral stones and evidence of infection. Urologic consultation has been requested regarding management of his stones in the face of the infection. Patient does have a history of stones and has undergone previous ureteroscopy by Dr. Mac. He has also undergone prior extracorporal shockwave lithotripsy years ago. Patient currently denies any nausea or vomiting, fevers or chills. Chief complaint: Right flank pain Reason for consult: Right ureteral stones and infection cc:: CC: Constitutional Constitutional: Absent anorexia, chills, fatigue, headache(s), night sweats or weakness EENT Eyes: Absent change in vision Ears: Absent decreased hearing Nose, mouth and throat: Present sore throat Cardiovascular Cardiovascular: Absent chest pain, dyspnea, palpatations or syncope Respiratory Respiratory: Absent cough Gastrointestinal Gastrointestinal: Present abdominal pain; Absent nausea or vomiting Genitourinary Genitourinary: as per HPI Musculoskeletal Musculoskeletal: Absent muscle weakness Integumentary Integumentary: Present rash Neurological Neurological: Absent dizziness or headache(s) Endocrine Endocrine: Absent change in body appearance or palpitations Hematologic/Lymphatic Hematologic/Lymphatic: Absent easy bleeding, easy bruising or lymphadenopathy PFSH PFSH All Active Problems Benign prostatic hyperplasia (BPH) with urinary urgency (Chronic 11/10/13) History of colonic polyps (Chronic) Diverticulosis of colon (Chronic) Gout (Chronic) Impotence, 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) Renal calculi (Chronic 11/17/13) Sleep apnea (Chronic) Degenerative arthritis of right knee (Chronic) Obesity (Chronic) Chronic vasomotor rhinitis (Chronic) Cholelithiasis and cholecystitis without obstruction (Chronic) Hypertension, essential (Chronic) Hearing loss (Chronic) Kidney stones (Acute) Ureteral colic (Acute) Ureteral stone with hydronephrosis (Acute) Acute kidney injury (Acute) Chest pain (Acute) BPH w urinary obs/LUTS (Chronic) Prostate cancer screening (Acute) Right flank pain (Acute) Elevated PSA, less than 10 ng/ml (Acute) Hydronephrosis, right (Chronic) Ureteral stricture (Chronic) Abdominal pain (Acute) Gross hematuria (Acute) Calculus of right ureter (Acute) Hydronephrosis, right (Acute) Leukocytosis (Acute) Acute UTI (Acute) Medical History Benign prostatic hyperplasia (BPH) with urinary urgency (11/10/13) Cholelithiasis and cholecystitis without obstruction Chronic vasomotor rhinitis Degenerative arthritis of right knee Diverticulosis of colon Gout Hearing loss History of colonic polyps Hydronephrosis, right Hypertension, essential Impotence, organic (11/10/13) Kidney stones Obesity BMI 36 2--2018 Renal calculi (11/17/13) Renal cyst (11/17/13) Sleep apnea Surgical History History of cholecystectomy 07/18/2018-open cholecystectomy with control of bleeding History of colonoscopy (08/11/13) TA, HP History of surgery Lithotripsy Status post anterior cruciate ligament surgery Family History Unknown Atherosclerosis of coronary artery Maternal Grandfather Cardiac abnormality pacemaker - gm, acute [place] - gf Maternal Grandmother Cardiac abnormality Father Malignant neoplasm of prostate Calculus of kidney Brother Calculus of kidney Social History household members: spouse housing: house marital status: occupational status: retired occupation: Retired from commercial sales and self-employment smoking status: Never smoker alcohol intake frequency: does not drink MEDS/ALLERGIES Home Medications and Allergies Home Medications Medication Instructions Recorded Confirmed Type CPAP machine, 12cm H2O pressure 1 unit .Route HS 07/18/18 08/01/22 History aspirin 81 mg tablet,delayed 81 mg PO QDAY 07/31/21 08/01/22 History release atorvastatin 40 mg tablet 40 mg PO QAM 07/31/21 08/01/22 History metoprolol succinate 25 mg 25 mg PO QAM 07/31/21 08/01/22 History tablet,extended release 24 hr cholecalciferol (vitamin D3) 50 50 mcg PO QDAY 08/23/21 08/01/22 History mcg (2,000 unit) capsule (Vitamin D3) hydrochlorothiazide 12.5 mg tablet 12.5 mg PO QAM 08/23/21 08/01/22 History multivitamin 1 tab PO QAM 08/23/21 08/01/22 History turmeric 400 mg capsule 1,500 mg PO QDAY 08/23/21 08/01/22 History zinc 50 mg tablet 50 mg PO QDAY 08/23/21 08/01/22 History tamsulosin 0.4 mg capsule 0.4 mg PO HS #30 caps 02/14/22 08/01/22 Rx Allergies Allergy/AdvReac Type Severity Reaction Status Date / Time No Known Drug Allergies Allergy Verified 11/23/22 01:49 Physical Examination Vital Signs Vital signs: Temp Pulse Resp BP Pulse Ox O2 Del Method 96.9 F L 77 14 141/67 95 Room Air 11/23/22 01:45 11/23/22 07:01 11/23/22 01:45 11/23/22 07:01 11/23/22 07:01 11/23/22 01:45 General physical appearance General physical exam: well developed, no distress and obese ENT ENT exam: negative nasal discharge Head Head exam IM: Present atraumatic Neck Neck exam: no lymphadenopathy Cardiovascular Cardiovascular exam IM: Present normal rate and rhythm Respiratory Respiratory exam: normal respiratory effort Abdomen Abdomen: Present soft and tender Genitourinary Genitourinary (Male): Present other (Right flank tenderness) Neurologic Neurologic: Present normal coordination Musculoskeletal Musculoskeletal: Present normal posture Psychiatric Psychiatric: Present oriented to time, oriented to person, oriented to place and speech is normal Results Labs 11/23/22 02:26 Labs: Abnormal lab results 11/23/22 11/23/22 11/23/22 Range/Units 01:58 02:26 03:00 WBC 16.8 H (4.5-11.0) K/mcL Neut % (Auto) 84.3 H (38.0-78.0) % Lymph % (Auto) 4.8 L (15.5-49.0) % Lymph # (Auto) 0.81 L (1.50-4.80) K/mcL [place] # (Auto) 1.69 H (0.10-0.90) K/mcL Immature Gran # 0.07 H (0.00-0.05) K/mcl Absolute Neutrophils 14.16 H (1.80-8.00) K/mcL POC VBG pCO2 at Temp (41-51) POC VBG pO2 (25-40) POC VBG HCO3 (24-28) POC Venous O2 Sat (40-70) POC BUN 24 H (6-20) POC Creatinine 1.3 H (0.6-1.2) POC Glucose 130 H (70-105) Urine Appearance Hazy A (Clear) Urine Glucose (UA) 150 A (Negative) mg/dL Urine Ketones 5 A (Negative) mg/dL Ur Leukocyte Esterase 500 A (Negative) /uL Urine RBC 16 H (0-3) /hpf Urine WBC 77 H (0-4) /hpf Urine Bacteria Few A (0) /hpf Urine Mucus Few A (None) /hpf /12/13 Range/Units 03:51 WBC (4.5-11.0) K/mcL Neut % (Auto) (38.0-78.0) % Lymph % (Auto) (15.5-49.0) % Lymph # (Auto) (1.50-4.80) K/mcL [place] # (Auto) (0.10-0.90) K/mcL Immature Gran # (0.00-0.05) K/mcl Absolute Neutrophils (1.80-8.00) K/mcL POC VBG pCO2 at Temp 40.1 L (41-51) POC VBG pO2 62 H (25-40) POC VBG HCO3 23.9 L (24-28) POC Venous O2 Sat 91.0 H (40-70) POC BUN (6-20) POC Creatinine (0.6-1.2) POC Glucose (70-105) Urine Appearance (Clear) Urine Glucose (UA) (Negative) mg/dL Urine Ketones (Negative) mg/dL Ur Leukocyte Esterase (Negative) /uL Urine RBC (0-3) /hpf Urine WBC (0-4) /hpf Urine Bacteria (0) /hpf Urine Mucus (None) /hpf All other labs normal. Imaging CT scan - abdomen: report reviewed and image reviewed (2 stones in the right distal ureter 1 approximately 10 mm and one approximately 7 mm resulting in severe hydronephrosis and hydroureter multiple nonobstructive calyceal stones in the right kidney and left kidney) A/P Assessment and plan (1) Ureteral stone with hydronephrosis: Status: Acute (2) Acute UTI: Status: Acute Plan 71-year-old gentleman with a history of renal stones currently with 2 obstructive right distal ureteral stones in the face of urinary infection. I discussed the findings in detail with the patient. I informed the patient that stones in the face of infection can result in severe illness. We have discussed options and we will plan to proceed with a cystoscopy right retrograde pyelography right ureteral stent placement and possible ureteroscopy with laser lithotripsy. Patient understands that if there is significant infection at the time of the procedure I will not plan to treat the stones but rather just place a stent. This will require him needing treatment for the stones at a later time. We discussed the procedure in detail includes indications, options, risk and possible complications there were no guarantees given or implied. Patient wished to proceed. Patient will be otherwise managed by the hospitalist service. Time Spent With Patient Time: Total time spent is greater than 50% in coordination of care (as documented) at patient's floor/unit and/or counseling patient:
[2022-11-23 09:58] LABS: Prothrombin Time 13.5 sec (11.9-14.5)
[2022-11-23] MEDS: LACTATED RINGERS 1,000 ML IV SCH ×2 (10:17→17:57)
--- NOTE | 2022-11-23 10:24 | XRay Report ---
CLINICAL INFORMATION: Preop COMPARISON: None. TECHNIQUE: Portable FINDINGS: The heart is moderately enlarged but unchanged. Mediastinum and pulmonary vessels are normal. Lungs are clear. No effusions. IMPRESSION: Moderate stable cardiomegaly. No acute disease Interpreted and Authenticated by: Sunil Muñoz 11/23/22
--- NOTE | 2022-11-23 11:35 | Internal Med History&Physical ---
HPI History of Present Illness Patient information: Note initiated : 11/23/22 at 11:29 am Service Date, if different from initiated Date: [] Patient: Marcus Gilbert a 71 y/o M admitted on 11/23/22 for Flank pain. Chief Complaint: [] History of present illness: Mr. Gilbert is a 71 year old M Presents the ED with severe right flank pain. Patient states it started developed right flank pain yesterday afternoon. He has had an episode of nausea vomiting x1 because of the pain. Denies fever chills. In the ED he was evaluated found to have 2 stones in the right distal ureter measuring 10 and 7 mm with obstruction causing hydroureter and hydronephrosis and renal edema. He is found have a leukocytosis 16,000. Lactate and vital signs are okay. Dr. Quiroz was contacted and will perform stent placement and requested the patient be admitted to monitor. Patient started on IV antibiotics and fluids in the ED. Review of Systems: Pertinent positives as above. Denies headache/fever/chills/nausea/vomiting/chest pain/cough/dyspnea/diarrhea. Remaining 10 point review of system reviewed negative PHYSICAL EXAM General: Alert, Awake, No acute Distress, obese Eyes/N/T: EOMI, no scleral icterus, PERRL, MM Head/Neck: neck supple, full ROM, normocephalic atraumatic CV: RRR, No murmurs, normal s1/s2 Pulm: Clear b/l, no wheezing/rhonchi/rales, no respiratory distress Abd: soft, nontender, +BS x4 Ext: no clubbing/cyanosis/edema, nontender Neuro: Alert, no focal deficits, moves all extremities, CN 2-12 grossly intact, sensations intact b/l upper/lower Psychiatric: Skin: warm/dry, normal color PFSH PFSH All Active Problems Benign prostatic hyperplasia (BPH) with urinary urgency (Chronic 11/10/13) History of colonic polyps (Chronic) Diverticulosis of colon (Chronic) Gout (Chronic) Impotence, 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) Renal calculi (Chronic 11/17/13) Sleep apnea (Chronic) Degenerative arthritis of right knee (Chronic) Obesity (Chronic) Chronic vasomotor rhinitis (Chronic) Cholelithiasis and cholecystitis without obstruction (Chronic) Hypertension, essential (Chronic) Hearing loss (Chronic) Kidney stones (Acute) Ureteral colic (Acute) Ureteral stone with hydronephrosis (Acute) Acute kidney injury (Acute) Chest pain (Acute) BPH w urinary obs/LUTS (Chronic) Prostate cancer screening (Acute) Right flank pain (Acute) Elevated PSA, less than 10 ng/ml (Acute) Hydronephrosis, right (Chronic) Ureteral stricture (Chronic) Abdominal pain (Acute) Gross hematuria (Acute) Calculus of right ureter (Acute) Hydronephrosis, right (Acute) Leukocytosis (Acute) Acute UTI (Acute) Medical History Benign prostatic hyperplasia (BPH) with urinary urgency (11/10/13) Cholelithiasis and cholecystitis without obstruction Chronic vasomotor rhinitis Degenerative arthritis of right knee Diverticulosis of colon Gout Hearing loss History of colonic polyps Hydronephrosis, right Hypertension, essential Impotence, organic (11/10/13) Kidney stones Obesity BMI 36 --2018 Renal calculi (11/17/13) Renal cyst (11/17/13) Sleep apnea Surgical History History of cholecystectomy 07/18/2018-open cholecystectomy with control of bleeding History of colonoscopy (08/11/13) TA, HP History of surgery Lithotripsy Status post anterior cruciate ligament surgery Family History Unknown Atherosclerosis of coronary artery Maternal Grandfather Cardiac abnormality pacemaker - gm, acute CO - gf Maternal Grandmother Cardiac abnormality Father Malignant neoplasm of prostate Calculus of kidney Brother Calculus of kidney Social History household members: spouse housing: house marital status: occupational status: retired occupation: Retired from commercial sales and self-employment smoking status: Former smoker alcohol intake frequency: does not drink MEDS/ALLERGIES Home Medications and Allergies Home Medications Medication Instructions Recorded Confirmed Type CPAP machine, 12cm H2O pressure 1 unit .Route HS 07/18/18 11/23/22 History aspirin 81 mg tablet,delayed 81 mg PO QDAY 07/31/21 11/23/22 History release atorvastatin 40 mg tablet 40 mg PO QAM 07/31/21 11/23/22 History metoprolol succinate 25 mg 25 mg PO QAM 07/31/21 11/23/22 History tablet,extended release 24 hr hydrochlorothiazide 12.5 mg tablet 12.5 mg PO QAM 08/23/21 11/23/22 History multivitamin 1 tab PO QAM 08/23/21 11/23/22 History tamsulosin 0.4 mg capsule 0.4 mg PO HS #30 caps 02/14/22 11/23/22 Rx Allergies Allergy/AdvReac Type Severity Reaction Status Date / Time No Known Drug Allergies Allergy Verified 11/23/22 01:49 EXAM Constitutional Vitals: Temp Pulse Resp BP Pulse Ox O2 Del Method 96.9 F L 82 14 138/74 95 Room Air 11/23/22 10:06 11/23/22 10:06 11/23/22 10:06 11/23/22 10:06 11/23/22 10:06 11/23/22 01:45 DATA Data Completed and Pending Labs: Labs from last 24 hours 11/23/22 11/23/22 11/23/22 08:50 03:51 03:00 WBC RBC Hgb Hct POC Hct MCV MCH MCHC RDW Plt Count MPV Immature Gran % (Auto) Neut % (Auto) Lymph % (Auto) [place] % (Auto) Eos % (Auto) Baso % (Auto) Lymph # (Auto) [place] # (Auto) Eos # (Auto) Baso # (Auto) Immature Gran # Absolute Neutrophils PT 13.5 INR 1.0 POC VBG pH 7.38 POC VBG pCO2 at Temp 40.1 L POC VBG pO2 62 H POC VBG HCO3 23.9 L POC VBG Total CO2 25.0 POC Venous O2 Sat 91.0 H POC VBG Base Excess -1.0 VBG Lactic Acid 0.8 POC Sodium POC Potassium POC Chloride POC Total CO2 POC BUN POC Creatinine POC Glucose POC WB Ioniz Calcium Urine Color Yellow Urine Appearance Hazy A Urine pH 5.0 Ur Specific [place] 1.017 Urine Protein Negative Urine Glucose (UA) 150 A Urine Ketones 5 A Urine Occult Blood 0.20 Urine Nitrate Negative Urine Bilirubin Negative Urine Urobilinogen Negative Ur Leukocyte Esterase 500 A Urine RBC 16 H Urine WBC 77 H Ur Squamous Epith Cells < 1 Urine Bacteria Few A Urine Mucus Few A Ur Culture Indicated? yes 11/23/22 11/23/22 02:26 01:58 WBC 16.8 H RBC 5.46 Hgb 16.8 Hct 49.9 POC Hct 53.0 MCV 91.4 MCH 30.8 MCHC 33.7 RDW 13.4 Plt Count 332 MPV 9.4 Immature Gran % (Auto) 0.4 Neut % (Auto) 84.3 H Lymph % (Auto) 4.8 L [place] % (Auto) 10.1 Eos % (Auto) 0.1 Baso % (Auto) 0.3 Lymph # (Auto) 0.81 L [place] # (Auto) 1.69 H Eos # (Auto) 0.01 Baso # (Auto) 0.05 Immature Gran # 0.07 H Absolute Neutrophils 14.16 H PT INR POC VBG pH POC VBG pCO2 at Temp POC VBG pO2 POC VBG HCO3 POC VBG Total CO2 POC Venous O2 Sat POC VBG Base Excess VBG Lactic Acid POC Sodium 136 POC Potassium 3.6 POC Chloride 101 POC Total CO2 24.0 POC BUN 24 H POC Creatinine 1.3 H POC Glucose 130 H POC WB Ioniz Calcium 1.32 Urine Color Urine Appearance Urine pH Ur Specific [place] Urine Protein Urine Glucose (UA) Urine Ketones Urine Occult Blood Urine Nitrate Urine Bilirubin Urine Urobilinogen Ur Leukocyte Esterase Urine RBC Urine WBC Ur Squamous Epith Cells Urine Bacteria Urine Mucus Ur Culture Indicated? A/P Narrative A/P Narrative: A: *R hydroureter/hydronephrosis: 2/2 obstructing stones x2 *Ureteral stones distal right ureter x2: *DERIC on CKD II: 2/2 above *UTI: 2/2 above *BPH: *HTN: *LAURA on CPAP: *Obesity: BMI 36 * P: -Rocephin, pending UC -IVF -N.p.o. for procedure by urology, stenting -Follow-up renal function, monitor UOP -Follow-up CBC. Follow-up blood cultures. -Monitor chemistry and replace electrolytes as needed - -Home CPAP -Continue home BB, hold HCTZ for now -ppx: SCDs pending procedure Time Spent With Patient Time: Total time spent is greater than 50% in coordination of care (as documented) at patient's floor/unit and/or counseling patient: Initial: Total time with patient: 55 - 74 minutes
[2022-11-23] MEDS ORDERED: PROPOFOL 200 MG/20 ML VIAL IV ONE (11:49)
[2022-11-23] MEDS ORDERED: LIDOCAINE HCL/PF 100 MG/5 ML SYRINGE IV ONE (11:49)
[2022-11-23] MEDS ORDERED: MIDAZOLAM 2 MG/2 ML VIAL ONE (11:49)
[2022-11-23] MEDS ORDERED: fentaNYL 100 MCG/2 ML VIAL IV ONE (11:49)
[2022-11-23] MEDS ORDERED: IPRATROPIUM/ALBUTEROL 3 ML AMPUL.NEB NEB PRN ×2 (12:06→12:37)
[2022-11-23] MEDS ORDERED: HYDROmorphone 0.5 MG/0.5 ML SYRINGE IV PRN (12:06)
[2022-11-23] MEDS ORDERED: fentaNYL 100 MCG/2 ML VIAL IV PRN (12:06)
--- NOTE | 2022-11-23 12:18 | Operative Note ---
Brief Operative Note Date of procedure: 11/23/22 Pre-op diagnosis: Obstructive right ureteral stone with infection Post-op diagnosis: same Procedure: Cystoscopy, right retrograde pyelography, and irght ureteral stent placement Grafts/Implants: Yes (6 [place] by 24 cm stent) Anesthesia: GLMA Findings: High-grade obstruction of the distal ureter. 6 [place] by 24 cm stent placed Complications: none Surgeon: Jamel Quiroz Estimated blood loss (cc): 0 Specimens Removed/Pathology: none sent Condition: stable Disposition: PACU Operative Note Operative Note: After obtaining consent the patient taken the operating room where general anesthesia was induced. Patient was placed in dorsolithotomy position and prepped and draped in sterile fashion. A well-lubricated cystoscope was placed in the patient's bladder and cystourethroscopy was performed. The right ureteral orifice was identified and cannulated with an endhole catheter. Using dilute contrast under low pressure a retrograde pyelogram was obtained and stone was noted in the distal ureter. At this time an angled tipped sensor wire was passed through the endhole catheter and negotiated past the stone under fluoroscopic guidance. Guidewire was advanced into the renal pelvis. Endhole catheter was removed and there was noted to be a large volume of purulent urine draining from the right ureteral orifice. The decision was made at this time not to proceed with ureteroscopy. A 6 [place] by 24 cm stent was advanced over the guidewire and under fluoroscopic guidance advanced into the patient's right renal pelvis. With a proximal curl in the renal pelvis and the distal curl in the patient's bladder guidewire was removed. Bladder was drained patient was awoken taken to postanesthesia recovery in stable condition.
[2022-11-23] MEDS ORDERED: LIDOCAINE 2% URO-JET 10 ML JEL.PF.APP UR ONE (12:31)
[2022-11-23] MEDS ORDERED: IOVERSOL 20 ML VIAL IV ONE (12:31)
[2022-11-23] MEDS ORDERED: cefTRIAXone 1 GM in DEXTROSE 5% IN WATER 50 ML IV SCH (12:37)
[2022-11-23] MEDS ORDERED: POTASSIUM CHLORIDE 40 MEQ in DEXTROSE 5% IN WATER 500 ML IV PRN (12:37)
[2022-11-23] MEDS ORDERED: HYDROcodone/APAP 5/325MG TABLET PO PRN (12:37)
[2022-11-23] MEDS ORDERED: POLYETHYLENE GLYCOL 3350 17 GM PACKET PO PRN (12:37)
[2022-11-23] MEDS ORDERED: MAGNESIUM SULFATE 2 GM/50 ML BAG IV PRN (12:37)
[2022-11-23] MEDS ORDERED: LABETALOL 5 MG/ML ML IV PRN (12:37)
[2022-11-23] MEDS ORDERED: POTASSIUM CHLORIDE 20 MEQ TABLET PO PRN ×2 (12:37)
[2022-11-23] MEDS ORDERED: SENNOSIDES 1 TABLET PO PRN (12:37)
[2022-11-23] MEDS: cefTRIAXone 1 GM VIAL IV SCH (13:42)
[2022-11-23] MEDS: 0.9 % SODIUM CHLORIDE 10 ML SYRINGE IV SCH ×2 (15:06→20:19)
--- NOTE | 2022-11-23 15:42 | XRay Report ---
CLINICAL INFORMATION: Two stones in distal right ureter resulting in right hydronephrosis COMPARISON: Abdomen and pelvic CT 11/23/2022 FINDINGS: Three digital images from the OR show right retrograde ureterogram. The known stones common iliac crossing, appear to occlude the contrast column. A double pigtail ureteral stent was successfully placed in position. Total fluoroscopy time 0.6 minutes. IMPRESSION: Successful placement right ureteral stent. Interpreted and Authenticated by: Sunil Muñoz 11/23/22
[2022-11-23] MEDS: ACETAMINOPHEN 325 MG TABLET PO PRN ×2 (16:12→23:24)
[2022-11-23] MEDS: TAMSULOSIN 0.4 MG CAPSULE PO SCH (20:19)
[2022-11-23] MEDS: DOCUSATE SODIUM 100 MG CAPSULE PO SCH (20:19)
[2022-11-23] MEDS ORDERED: CPAP MACHINE SCH (21:00)
[2022-11-23] MEDS ORDERED: [UNRECOGNIZED DRUG - OTHER] SCH (21:00)
[2022-11-24] MEDS: LACTATED RINGERS 1,000 ML IV SCH ×2 (01:59→09:55)
[2022-11-24] MEDS: 0.9 % SODIUM CHLORIDE 10 ML SYRINGE IV SCH ×3 (06:01→21:08)
[2022-11-24 06:35] LABS: Basophils # (Auto) 0.03 K/mcL (0.00-0.30); Basophils % (Auto) 0.4 % (0.0-2.0); Eosinophils % (Auto) 1.2 % (0.0-7.0); Hematocrit 43.6 % (40.1-51.0); Hemoglobin 14.4 g/dL (13.7-17.5); Lymphocytes # (Auto) 0.89 K/mcL (1.50-4.80); Lymphocytes % (Auto) 10.6 % (15.5-49.0); Mean Cell Volume 94.6 fL (80.0-100.0); Mean Platelet Volume 9.3 fL (8.8-12.5); Monocytes # (Auto) 1.51 K/mcL (0.10-0.90); Monocytes % (Auto) 17.9 % (1.0-12.0); Neutrophils % (Auto) 69.7 % (38.0-78.0); Platelet Count 244 K/mcL (140-440); RBC 4.61 M/mcL (4.63-6.08); Red Cell Distribution Width 13.8 % (11.5-14.5); WBC 8.4 K/mcL (4.5-11.0)
[2022-11-24 07:14] LABS: ALT/SGPT 15 U/L (<40); AST/SGOT 13 U/L (<40); Albumin 3.4 gm/dL (3.2-5.2); Albumin/Globulin Ratio 1.4 (1.0-2.3); Alkaline Phosphatase 69 U/L (39-117); Bilirubin,Direct 0.2 mg/dL (<0.3); Bilirubin,Total 0.7 mg/dL (0.1-1.0); Blood Urea Nitrogen 18 mg/dL (8-23); Calcium 9.6 mg/dL (8.6-10.4); Carbon Dioxide 24 mmol/L (22-30); Chloride 105 mmol/L (96-108); Globulin 2.4 gm/dL (2.2-3.7); Glomerular Filtration Rate 66; Glucose 95 mg/dL (70-105); Lactate Dehydrogenase 169 U/L (135-225); Phosphorous 2.6 mg/dL (2.5-4.5); Triglycerides 55 mg/dL (<150); Uric Acid 3.7 mg/dL (2.5-8.0)
--- NOTE | 2022-11-24 08:20 | Internal Med Progress Note ---
SUBJECTIVE Subjective Patient information: Note initiated : 11/24/22 at 8:16 am Service Date, if different from initiated Date: [] Patient: Marcus Gilbert a 71 y/o M admitted on 11/23/22 for Flank pain. Chief Complaint: [] Interval history: History of present illness: Mr. Gilbert is a 71 year old M Presents the ED with severe right flank pain. Patient states it started developed right flank pain yesterday afternoon. He has had an episode of nausea vomiting x1 because of the pain. Denies fever chills. In the ED he was evaluated found to have 2 stones in the right distal ureter measuring 10 and 7 mm with obstruction causing hydroureter and hydronephrosis and renal edema. He is found have a leukocytosis 16,000. Lactate and vital signs are okay. Dr. Quiroz was contacted and will perform stent placement and requested the patient be admitted to monitor. Patient started on IV antibiotics and fluids in the ED. 3/4 Patient feeling a little better. Had ureteral stent placed on the right. Did have fever last night. Has peripheral edema states this is common for him. Leukocytosis improving. Renal function improving. Patient was febrile overnight. MRSA screen negative. Awaiting urine culture and blood cultures. Review of Systems: denies headache/fever/chills/nausea/vomiting/chest pain/cough/dyspnea/diarrhea. Otherwise see above. PHYSICAL EXAM General: Alert, Awake, No acute Distress, obese Eyes/N/T: EOMI, no scleral icterus, Head/Neck: neck supple, full ROM, CV: RRR, No murmurs, Pulm: Clear b/l, no wheezing/rhonchi/rales, no respiratory distress Abd: soft, nontender, +BS x4 Ext: no clubbing/cyanosis/edema, nontender Neuro: Alert, no focal deficits, moves all extremities, sensations intact b/l upper/lower Psychiatric: Skin: warm/dry, normal color Constitutional Vitals: Vital Signs Temp Pulse Resp BP Pulse Ox O2 Del Method O2 Flow Rate 99.1 F H 83 16 150/65 93 Room Air 0 11/24/22 07:38 11/24/22 07:38 11/24/22 07:38 11/24/22 07:38 11/24/22 07:38 11/24/22 07:38 11/23/22 13:01 Period Temp Pulse Resp BP Sys/[place] Pulse Ox O2 Del Method O2 Flow Rate Last 24 Hr 96.9 F-102.2 F 68-97 13- 109-151/62-82 91-100 Nasal Cannula- Room Air 0-4 Intake and Output 11/23/22 11/24/22 11/24/22 19:59 03:59 11:59 Intake Total 2190 1204 Output Total 300 475 400 Balance 1890 729 -400 Weight 106.594 kg Intake & Output: Intake & Output 11/23/22 11/24/22 11/24/22 19:59 03:59 11:59 Intake Total 2190 1204 Output Total 300 475 400 Balance 1890 729 -400 Weight 106.594 kg Intake: IV 920 964 Lactated Ringers 1,000 ml @ 120 920 964 mls/hr IV .Q8H20M [facility] [place] Rx#: [id number] Oral 720 240 IV - Manual Only 550 Output: Void Amount 300 475 400 Estimated Blood Loss 0 Other: Meal Lunch Percent of Meal Consumed 100% Feeding Ability Independent Urine Appearance Clear Urine Color Blood Tinged Yellow Yellow Urine Odor Normal # Voids 1 OBJ DATA Labs 11/24/22 05:27 11/24/22 05:27 Labs: Abnormal Lab Results 11/24/22 11/24/22 11/23/22 05:27 05:27 03:51 WBC RBC 4.61 L Neut % (Auto) Lymph % (Auto) 10.6 L [place] % (Auto) 17.9 H Lymph # (Auto) 0.89 L [place] # (Auto) 1.51 H Immature Gran # Absolute Neutrophils POC VBG pCO2 at Temp 40.1 L POC VBG pO2 62 H POC VBG HCO3 23.9 L POC Venous O2 Sat 91.0 H POC BUN POC Creatinine POC Glucose Total Protein 5.8 L Urine Appearance Urine Glucose (UA) Urine Ketones Ur Leukocyte Esterase Urine RBC Urine WBC Urine Bacteria Urine Mucus 11/23/22 11/23/22 11/23/22 03:00 02:26 01:58 WBC 16.8 H RBC Neut % (Auto) 84.3 H Lymph % (Auto) 4.8 L [place] % (Auto) Lymph # (Auto) 0.81 L [place] # (Auto) 1.69 H Immature Gran # 0.07 H Absolute Neutrophils 14.16 H POC VBG pCO2 at Temp POC VBG pO2 POC VBG HCO3 POC Venous O2 Sat POC BUN 24 H POC Creatinine 1.3 H POC Glucose 130 H Total Protein Urine Appearance Hazy A Urine Glucose (UA) 150 A Urine Ketones 5 A Ur Leukocyte Esterase 500 A Urine RBC 16 H Urine WBC 77 H Urine Bacteria Few A Urine Mucus Few A Meds: Medications Acetaminophen (Acetaminophen 325 Mg Tablet) 650 mg PO Q6HP PRN; Protocol PRN Reason: Per Pain Protocol/Fever > 101 Last Admin: 11/23/22 23:24 Dose: 650 mg Hydrocodone Bitart/Acetaminophen (Hydrocodone/Apap 5/325mg Tablet) 1 tab PO Q4HP PRN PRN Reason: PAIN LEVEL 3-6 Albuterol/Ipratropium (Ipratropium/Albuterol 3 Ml Ampul.Neb) 3 ml NEB Q4HP PRN PRN Reason: Shortness Of Breath Atorvastatin Calcium (Atorvastatin 40 Mg Tablet) 40 mg PO [facility] Ceftriaxone Sodium (Ceftriaxone 1 Gm Vial) 1 gm IV Q24H [facility] [place] Last Admin: 11/23/22 13:42 Dose: 1 gm Docusate Sodium (Docusate Sodium 100 Mg Capsule) 100 mg PO BID [facility] [place] Last Admin: 11/23/22 20:19 Dose: 100 mg Lactated Ringer's (Lactated Ringers) 1,000 mls @ 120 mls/hr IV .Q8H20M [facility] Last Admin: 11/24/22 01:59 Dose: 120 mls/hr Potassium Chloride 40 meq/ (Dextrose) 520 mls @ 130 mls/hr IV UD PRN PRN Reason: Potassium < 3 Magnesium Sulfate (Magnesium Sulfate) 2 gm in 50 mls @ 50 mls/hr IV UD PRN PRN Reason: Magnesium </= 1.6 Labetalol HCl (Labetalol 5 Mg/Ml Ml) 0 mg IV Q2HP PRN PRN Reason: Hypertension Metoprolol Succinate (Metoprolol Succinate 25 Mg Tab.Xl.24h) 25 mg PO [facility] Morphine Sulfate (Morphine 2 Mg/Ml Vial) 2 mg IV Q4HP PRN; Protocol PRN Reason: Per Pain Protocol Ondansetron HCl (Ondansetron 4 Mg/2 Ml Vial) 4 mg IV Q4HP PRN; Protocol PRN Reason: Nausea And Vomiting Polyethylene Glycol (Polyethylene Glycol 3350 17 Gm Packet) 17 gm PO DAILYP PRN PRN Reason: Constipation Potassium Chloride (Potassium Chloride 20 Meq Tablet) 40 meq PO UD PRN PRN Reason: Potssium is 3-3.5 Potassium Chloride (Potassium Chloride 20 Meq Tablet) 40 meq PO UD PRN PRN Reason: Potassium < 3 Senna (Sennosides 1 Tablet) 2 tab PO DAILYP PRN PRN Reason: Constipation Sodium Chloride (0.9 % Sodium Chloride 10 Ml Syringe) 10 ml IV Q8 [facility] [place] Last Admin: 11/24/22 06:01 Dose: Not Given Tamsulosin HCl (Tamsulosin 0.4 Mg Capsule) 0.4 mg PO HS [facility] [place] Last Admin: 11/23/22 20:19 Dose: 0.4 mg A/P Narrative A/P Narrative: A: *R hydroureter/hydronephrosis: 2/2 obstructing stones x2. s/p stent (11/23) *Ureteral stones obstructing distal right ureter x2: s/p stenting *DERIC on CKD II: 2/2 above, now improving *UTI: 2/2 above *Bacteremia(GPC in clusters): *Sepsis(febrile/tachycardia/leukocytosis): *BPH: *HTN: *LAURA on CPAP: *Obesity: BMI 36 P: -Rocephin, pending UC -IVF d/c -serial BC, vanco pending sensitivities -echo pending -Follow-up renal function, monitor UOP -Follow-up CBC. Follow-up blood cultures. -Monitor chemistry and replace electrolytes as needed -Home CPAP -Continue home BB, hold HCTZ for now -f/u with urology -ppx: lovenox Time Spent With Patient Time: Total time spent is greater than 50% in coordination of care (as documented) at patient's floor/unit and/or counseling patient: Subsequent: Total time with patient: 50 - 65 Minutes
[2022-11-24] MEDS: ATORVASTATIN 40 MG TABLET PO SCH (08:28)
[2022-11-24] MEDS: DOCUSATE SODIUM 100 MG CAPSULE PO SCH ×2 (08:28→21:08)
[2022-11-24] MEDS: METOPROLOL SUCCINATE 25 MG TAB.XL.24H PO SCH (08:28)
[2022-11-24] MEDS: ENOXAPARIN 40 MG/0.4 ML SYRINGE SQ SCH (10:26)
[2022-11-24] MEDS ORDERED: VANCOMYCIN PER PHARMACY IV SCH (11:24)
[2022-11-24] MEDS: cefTRIAXone 1 GM VIAL IV SCH (12:41)
[2022-11-24] MEDS: VANCOMYCIN 1,000 MG in 0.9 % SODIUM CHLORIDE 250 ML IV SCH ×2 (12:41→23:37)
[2022-11-24] MEDS: ACETAMINOPHEN 325 MG TABLET PO PRN (19:48)
[2022-11-24] MEDS: TAMSULOSIN 0.4 MG CAPSULE PO SCH (21:08)
[2022-11-25] MEDS: 0.9 % SODIUM CHLORIDE 10 ML SYRINGE IV SCH ×3 (05:50→20:55)
--- NOTE | 2022-11-25 08:52 | Internal Med Progress Note ---
SUBJECTIVE Subjective Patient information: Note initiated : 11/25/22 at 8:51 am Service Date, if different from initiated Date: [] Patient: Marcus Gilbert a 71 y/o M admitted on 11/23/22 for Flank pain. Chief Complaint: [] Interval history: History of present illness: Mr. Gilbert is a 71 year old M Presents the ED with severe right flank pain. Patient states it started developed right flank pain yesterday afternoon. He has had an episode of nausea vomiting x1 because of the pain. Denies fever chills. In the ED he was evaluated found to have 2 stones in the right distal ureter measuring 10 and 7 mm with obstruction causing hydroureter and hydronephrosis and renal edema. He is found have a leukocytosis 16,000. Lactate and vital signs are okay. Dr. Quiroz was contacted and will perform stent placement and requested the patient be admitted to monitor. Patient started on IV antibiotics and fluids in the ED. 3/4 Patient feeling a little better. Had ureteral stent placed on the right. Did have fever last night. Has peripheral edema states this is common for him. Leukocytosis improving. Renal function improving. Patient was febrile overnight. MRSA screen negative. Awaiting urine culture and blood cultures. 3/5 Patient slept better. Feeling a little better. Blood cultures on admission growing gram-positive cocci in clusters. Repeat blood cultures drawn yesterday. Will need IV therapy if staph aureus. Echo pending. Urine culture still pending. Review of Systems: denies headache/fever/chills/nausea/vomiting/chest pain/cough/dyspnea/diarrhea. Otherwise see above. PHYSICAL EXAM General: Alert, Awake, No acute Distress, obese Eyes/N/T: EOMI, no scleral icterus, Head/Neck: neck supple, full ROM, CV: RRR, No murmurs, Pulm: Clear b/l, no wheezing/rhonchi/rales, no respiratory distress Abd: soft, nontender, +BS x4 Ext: no clubbing/cyanosis, b/l LE 1-2+ edema, nontender Neuro: Alert, no focal deficits, moves all extremities, sensations intact b/l upper/lower Psychiatric: Skin: warm/dry, normal color Constitutional Vitals: Vital Signs Temp Pulse Resp BP Pulse Ox O2 Del Method O2 Flow Rate 98.4 F 73 18 133/75 94 Room Air 0 11/25/22 07:48 11/25/22 07:48 11/25/22 07:48 11/25/22 07:48 11/25/22 07:48 11/25/22 07:48 11/23/22 13:01 Period Temp Pulse Resp BP Sys/Weldon Pulse Ox O2 Del Method O2 Flow Rate Last 24 Hr 98.4 F-100.5 F 70-86 16-20 133-155/74-80 92-96 Room Air-Room Air Intake and Output 11/24/22 11/25/22 11/25/22 19:59 03:59 11:59 Intake Total 2770 650 Balance 2770 650 Weight 106.594 kg 107.819 kg Intake & Output: Intake & Output 11/24/22 11/25/22 11/25/22 19:59 03:59 11:59 Intake Total 2770 650 Balance 2770 650 Weight 106.594 kg 107.819 kg Intake: IV 1250 250 Lactated Ringers 1,000 ml @ 120 1000 mls/hr IV .Q8H20M [facility] Rx#: [id number] Vancomycin 1,000 mg In Sodium 250 250 Chloride 0.9% 250 ml @ 250 mls/ hr IV Q12H [facility] Rx#:[id number] Oral 1040 400 GI Tube Flush 480 Other: Meal Dinner Percent of Meal Consumed 50% Feeding Ability Independent # Voids 1 2 OBJ DATA Labs 11/24/22 05:27 11/24/22 05:27 Labs: Abnormal Lab Results 11/24/22 11/24/22 11/23/22 05:27 05:27 03:51 WBC RBC 4.61 L Neut % (Auto) Lymph % (Auto) 10.6 L [place] % (Auto) 17.9 H Lymph # (Auto) 0.89 L [place] # (Auto) 1.51 H Immature Gran # Absolute Neutrophils POC VBG pCO2 at Temp 40.1 L POC VBG pO2 62 H POC VBG HCO3 23.9 L POC Venous O2 Sat 91.0 H POC BUN POC Creatinine POC Glucose Total Protein 5.8 L Urine Appearance Urine Glucose (UA) Urine Ketones Ur Leukocyte Esterase Urine RBC Urine WBC Urine Bacteria Urine Mucus 11/23/22 11/23/22 11/23/22 03:00 02:26 01:58 WBC 16.8 H RBC Neut % (Auto) 84.3 H Lymph % (Auto) 4.8 L [place] % (Auto) Lymph # (Auto) 0.81 L [place] # (Auto) 1.69 H Immature Gran # 0.07 H Absolute Neutrophils 14.16 H POC VBG pCO2 at Temp POC VBG pO2 POC VBG HCO3 POC Venous O2 Sat POC BUN 24 H POC Creatinine 1.3 H POC Glucose 130 H Total Protein Urine Appearance Hazy A Urine Glucose (UA) 150 A Urine Ketones 5 A Ur Leukocyte Esterase 500 A Urine RBC 16 H Urine WBC 77 H Urine Bacteria Few A Urine Mucus Few A Meds: Medications Acetaminophen (Acetaminophen 325 Mg Tablet) 650 mg PO Q6HP PRN; Protocol PRN Reason: Per Pain Protocol/Fever > 101 Last Admin: 11/24/22 19:48 Dose: 650 mg Hydrocodone Bitart/Acetaminophen (Hydrocodone/Apap 5/325mg Tablet) 1 tab PO Q4HP PRN PRN Reason: PAIN LEVEL 3-6 Albuterol/Ipratropium (Ipratropium/Albuterol 3 Ml Ampul.Neb) 3 ml NEB Q4HP PRN PRN Reason: Shortness Of Breath Atorvastatin Calcium (Atorvastatin 40 Mg Tablet) 40 mg PO QAM [facility] Last Admin: 11/24/22 08:28 Dose: 40 mg Ceftriaxone Sodium (Ceftriaxone 1 Gm Vial) 1 gm IV Q24H [facility] Last Admin: 11/24/22 12:41 Dose: 1 gm Docusate Sodium (Docusate Sodium 100 Mg Capsule) 100 mg PO BID [facility] Last Admin: 11/24/22 21:08 Dose: 100 mg Enoxaparin Sodium (Enoxaparin 40 Mg/0.4 Ml Syringe) 40 mg SQ DAILY [facility] Last Admin: 11/24/22 10:26 Dose: 40 mg Potassium Chloride 40 meq/ (Dextrose) 520 mls @ 130 mls/hr IV UD PRN PRN Reason: Potassium < 3 Magnesium Sulfate (Magnesium Sulfate) 2 gm in 50 mls @ 50 mls/hr IV UD PRN PRN Reason: Magnesium </= 1.6 Vancomycin HCl 1,000 mg/ (Sodium Chloride) 250 mls @ 250 mls/hr IV Q12H [facility] Last Infusion: 11/25/22 01:05 Dose: Infused Labetalol HCl (Labetalol 5 Mg/Ml Ml) 0 mg IV Q2HP PRN PRN Reason: Hypertension Metoprolol Succinate (Metoprolol Succinate 25 Mg Tab.Xl.24h) 25 mg PO QAM [facility] Last Admin: 11/24/22 08:28 Dose: 25 mg Morphine Sulfate (Morphine 2 Mg/Ml Vial) 2 mg IV Q4HP PRN; Protocol PRN Reason: Per Pain Protocol Ondansetron HCl (Ondansetron 4 Mg/2 Ml Vial) 4 mg IV Q4HP PRN; Protocol PRN Reason: Nausea And Vomiting Polyethylene Glycol (Polyethylene Glycol 3350 17 Gm Packet) 17 gm PO DAILYP PRN PRN Reason: Constipation Last Admin: 11/24/22 21:08 Dose: 17 gm Potassium Chloride (Potassium Chloride 20 Meq Tablet) 40 meq PO UD PRN PRN Reason: Potssium is 3-3.5 Potassium Chloride (Potassium Chloride 20 Meq Tablet) 40 meq PO UD PRN PRN Reason: Potassium < 3 Senna (Sennosides 1 Tablet) 2 tab PO DAILYP PRN PRN Reason: Constipation Sodium Chloride (0.9 % Sodium Chloride 10 Ml Syringe) 10 ml IV Q8 [facility] Last Admin: 11/25/22 05:50 Dose: 10 ml Tamsulosin HCl (Tamsulosin 0.4 Mg Capsule) 0.4 mg PO HS [facility] Last Admin: 11/24/22 21:08 Dose: 0.4 mg Vancomycin HCl (Vancomycin Per Pharmacy) 1 order IV UD [facility]; Protocol A/P Narrative A/P Narrative: A: *R hydroureter/hydronephrosis: 2/2 obstructing stones x2. s/p stent (3/3) *Ureteral stones obstructing distal right ureter x2: s/p stenting *DERIC on CKD II: 2/2 above, now improving *UTI: 2/2 above *Bacteremia(GPC in clusters): -echo *Sepsis(febrile/tachycardia/leukocytosis): -tmax 100.5 past 24h *BPH: *HTN: *LAURA on CPAP: *Obesity: BMI 36 *Peripheral edema: P: -Rocephin, pending UC -abx for likely 14-day course IV -IVF d/c -serial BC, vanco pending I&S -echo pending -Follow-up renal function, monitor UOP -Follow-up CBC. Follow-up blood cultures. -Monitor chemistry and replace electrolytes as needed -Home CPAP -Continue home BB, restart HCTZ -f/u with urology -ppx: lovenox Time Spent With Patient Time: Total time spent is greater than 50% in coordination of care (as documented) at patient's floor/unit and/or counseling patient: Subsequent: Total time with patient: 35 - 49 minutes
[2022-11-25] MEDS: ENOXAPARIN 40 MG/0.4 ML SYRINGE SQ SCH (09:38)
[2022-11-25] MEDS: DOCUSATE SODIUM 100 MG CAPSULE PO SCH ×2 (09:38→20:55)
[2022-11-25] MEDS: METOPROLOL SUCCINATE 25 MG TAB.XL.24H PO SCH (09:38)
[2022-11-25] MEDS: ATORVASTATIN 40 MG TABLET PO SCH (09:38)
[2022-11-25] MEDS: HYDROCHLOROTHIAZIDE 12.5 MG CAPSULE PO SCH (10:44)
[2022-11-25] MEDS: cefTRIAXone 1 GM VIAL IV SCH (12:40)
[2022-11-25] MEDS: VANCOMYCIN 1,500 MG in 0.9 % SODIUM CHLORIDE 500 ML IV SCH (13:13)
[2022-11-25] MEDS: VANCOMYCIN 1,000 MG in 0.9 % SODIUM CHLORIDE 250 ML IV SCH (13:23)
--- NOTE | 2022-11-25 20:31 | EKG ---
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
[2022-11-25] MEDS: TAMSULOSIN 0.4 MG CAPSULE PO SCH (20:55)
[2022-11-26] MEDS: VANCOMYCIN 1,500 MG in 0.9 % SODIUM CHLORIDE 500 ML IV SCH ×2 (00:32→13:06)
[2022-11-26] MEDS: 0.9 % SODIUM CHLORIDE 10 ML SYRINGE IV SCH ×3 (05:51→20:52)
--- NOTE | 2022-11-26 08:06 | Internal Med Progress Note ---
SUBJECTIVE Subjective Patient information: Note initiated : 11/26/22 at 8:04 am Service Date, if different from initiated Date: [] Patient: Marcus Gilbert a 71 y/o M admitted on 11/23/22 for Flank pain. Chief Complaint: [] Interval history: History of present illness: Mr. Gilbert is a 71 year old M Presents the ED with severe right flank pain. Patient states it started developed right flank pain yesterday afternoon. He has had an episode of nausea vomiting x1 because of the pain. Denies fever chills. In the ED he was evaluated found to have 2 stones in the right distal ureter measuring 10 and 7 mm with obstruction causing hydroureter and hydronephrosis and renal edema. He is found have a leukocytosis 16,000. Lactate and vital signs are okay. Dr. Quiroz was contacted and will perform stent placement and requested the patient be admitted to monitor. Patient started on IV antibiotics and fluids in the ED. 3/4 Patient feeling a little better. Had ureteral stent placed on the right. Did have fever last night. Has peripheral edema states this is common for him. Leukocytosis improving. Renal function improving. Patient was febrile overnight. MRSA screen negative. Awaiting urine culture and blood cultures. 3/5 Patient slept better. Feeling a little better. Blood cultures on admission growing gram-positive cocci in clusters. Repeat blood cultures drawn yesterday. Will need IV therapy if staph aureus. Echo pending. Urine culture still pending. 3/6 afebrile o/n. Feeling better. No overnight event or new complaints. Awaiting follow-up blood cultures. Urine culture with coag negative staph. Awaiting final identities on the blood cultures. Review of Systems: denies headache/fever/chills/nausea/vomiting/chest pain/cough/dyspnea/diarrhea. Otherwise see above. PHYSICAL EXAM General: Alert, Awake, No acute Distress, obese Eyes/N/T: EOMI, no scleral icterus, Head/Neck: neck supple, full ROM, CV: RRR, No murmurs, Pulm: Clear b/l, no wheezing/rhonchi/rales, no respiratory distress Abd: soft, nontender, +BS x4 Ext: no clubbing/cyanosis, b/l LE 1-2+ edema, nontender Neuro: Alert, no focal deficits, moves all extremities, sensations intact b/l upper/lower Psychiatric: Skin: warm/dry, normal color Constitutional Vitals: Vital Signs Temp Pulse Resp BP Pulse Ox O2 Del Method O2 Flow Rate 98.8 F 75 20 147/81 94 Room Air 0 11/26/22 03:05 11/26/22 03:05 11/26/22 03:05 11/26/22 03:05 11/26/22 03:05 11/26/22 03:05 11/23/22 13:01 Period Temp Pulse Resp BP Sys/Weldon Pulse Ox O2 Del Method O2 Flow Rate Last 24 Hr 97.9 F-98.8 F 70-80 18-20 137-158/73-83 94-96 Room Air-Room Air Intake and Output 11/25/22 11/26/22 11/26/22 19:59 03:59 11:59 Intake Total 1220 550 Balance 1220 550 Weight 108 kg Intake & Output: Intake & Output 11/25/22 11/26/22 11/26/22 19:59 03:59 11:59 Intake Total 1220 550 Balance 1220 550 Weight 108 kg Intake: IV 500 Vancomycin 1,500 mg In Sodium 500 Chloride 0.9% 500 ml @ 333.3 mls/hr IV Q12H [facility] Rx#: [id number] Oral 240 550 GI Tube Flush 480 Other: Meal Dinner Percent of Meal Consumed 100% Feeding Ability Independent # Voids 1 2 OBJ DATA Labs 11/24/22 05:27 11/24/22 05:27 Labs: Abnormal Lab Results 11/24/22 11/24/22 05:27 05:27 RBC 4.61 L Lymph % (Auto) 10.6 L [place] % (Auto) 17.9 H Lymph # (Auto) 0.89 L [place] # (Auto) 1.51 H Total Protein 5.8 L Meds: Medications Acetaminophen (Acetaminophen 325 Mg Tablet) 650 mg PO Q6HP PRN; Protocol PRN Reason: Per Pain Protocol/Fever > 101 Last Admin: 11/24/22 19:48 Dose: 650 mg Hydrocodone Bitart/Acetaminophen (Hydrocodone/Apap 5/325mg Tablet) 1 tab PO Q4HP PRN PRN Reason: PAIN LEVEL 3-6 Albuterol/Ipratropium (Ipratropium/Albuterol 3 Ml Ampul.Neb) 3 ml NEB Q4HP PRN PRN Reason: Shortness Of Breath Atorvastatin Calcium (Atorvastatin 40 Mg Tablet) [facility] Last Admin: 11/25/22 09:38 Dose: 40 mg Ceftriaxone Sodium (Ceftriaxone 1 Gm Vial) 1 gm IV Q24H [facility] Last Admin: 11/25/22 12:40 Dose: 1 gm Docusate Sodium (Docusate Sodium 100 Mg Capsule) 100 mg PO BID [facility] Last Admin: 11/25/22 20:55 Dose: 100 mg Enoxaparin Sodium (Enoxaparin 40 Mg/0.4 Ml Syringe) 40 mg SQ DAILY [facility] Last Admin: 11/25/22 09:38 Dose: 40 mg Hydrochlorothiazide (Hydrochlorothiazide 12.5 Mg Capsule) 12.5 mg PO [facility] Last Admin: 11/25/22 10:44 Dose: 12.5 mg Potassium Chloride 40 meq/ (Dextrose) 520 mls @ 130 mls/hr IV UD PRN PRN Reason: Potassium < 3 Magnesium Sulfate (Magnesium Sulfate) 2 gm in 50 mls @ 50 mls/hr IV UD PRN PRN Reason: Magnesium </= 1.6 Vancomycin HCl 1,500 mg/ (Sodium Chloride) 500 mls @ 333.3 mls/hr IV Q12H [facility] Last Admin: 11/26/22 00:32 Dose: 250 mls/hr Labetalol HCl (Labetalol 5 Mg/Ml Ml) 0 mg IV Q2HP PRN PRN Reason: Hypertension Metoprolol Succinate (Metoprolol Succinate 25 Mg Tab.Xl.24h) 25 mg PO [facility] Last Admin: 11/25/22 09:38 Dose: 25 mg Morphine Sulfate (Morphine 2 Mg/Ml Vial) 2 mg IV Q4HP PRN; Protocol PRN Reason: Per Pain Protocol Ondansetron HCl (Ondansetron 4 Mg/2 Ml Vial) 4 mg IV Q4HP PRN; Protocol PRN Reason: Nausea And Vomiting Polyethylene Glycol (Polyethylene Glycol 3350 17 Gm Packet) 17 gm PO DAILYP PRN PRN Reason: Constipation Last Admin: 11/24/22 21:08 Dose: 17 gm Potassium Chloride (Potassium Chloride 20 Meq Tablet) 40 meq PO UD PRN PRN Reason: Potssium is 3-3.5 Potassium Chloride (Potassium Chloride 20 Meq Tablet) 40 meq PO UD PRN PRN Reason: Potassium < 3 Senna (Sennosides 1 Tablet) 2 tab PO DAILYP PRN PRN Reason: Constipation Sodium Chloride (0.9 % Sodium Chloride 10 Ml Syringe) 10 ml IV Q8 [facility] Last Admin: 11/26/22 05:51 Dose: 10 ml Tamsulosin HCl (Tamsulosin 0.4 Mg Capsule) 0.4 mg PO HS [facility] Last Admin: 11/25/22 20:55 Dose: 0.4 mg Vancomycin HCl (Vancomycin Per Pharmacy) 1 order IV UD [facility]; Protocol A/P Narrative A/P Narrative: A: *R hydroureter/hydronephrosis: 2/2 obstructing stones x2. s/p R uretural stent (11/23) *Ureteral stones obstructing distal right ureter x2: s/p stenting *DERIC on CKD II: 2/2 above, now improving *UTI(coag neg staph): 2/2 above *Bacteremia(GPC in clusters): -echo *Sepsis(febrile/tachycardia/leukocytosis): -tmax 100.5 past 24h *BPH: *HTN: *LAURA on CPAP: *Obesity: BMI 36 *Peripheral edema: P: -Rocephin, pending UC -abx for likely 14-day course IV -IVF d/c -serial BC, vanco pending I&S -echo pending -Follow-up renal function, monitor UOP -Follow-up CBC. Follow-up blood cultures. -Monitor chemistry and replace electrolytes as needed -Home CPAP -Continue home BB, restart HCTZ -f/u with urology -ppx: lovenox Time Spent With Patient Time: Total time spent is greater than 50% in coordination of care (as documented) at patient's floor/unit and/or counseling patient: Subsequent: Total time with patient: 35 - 49 minutes
[2022-11-26] MEDS: METOPROLOL SUCCINATE 25 MG TAB.XL.24H PO SCH (08:21)
[2022-11-26] MEDS: DOCUSATE SODIUM 100 MG CAPSULE PO SCH ×2 (08:22→20:51)
[2022-11-26] MEDS: ATORVASTATIN 40 MG TABLET PO SCH (08:23)
[2022-11-26] MEDS: HYDROCHLOROTHIAZIDE 12.5 MG CAPSULE PO SCH (08:23)
[2022-11-26] MEDS: ENOXAPARIN 40 MG/0.4 ML SYRINGE SQ SCH (08:24)
[2022-11-26] MEDS: cefTRIAXone 1 GM VIAL IV SCH (13:06)
--- NOTE | 2022-11-26 13:17 | Urology Progress Note ---
SUBJECTIVE Subjective Patient information: Note initiated : 11/26/22 at 1:15 pm Service Date, if different from initiated Date: [] Patient: Marcus Gilbert 71 y/o M admitted on 11/23/22 for Flank pain. Chief Complaint: [] Interval history: Patient states he continues to feel well. He has had minimal right-sided abdominal pain. Patient denies any dysuria or hematuria. He does complain of some urinary urgency. Constitutional Vitals: Vital Signs Temp Pulse Resp BP Pulse Ox O2 Del Method O2 Flow Rate 97.6 F 72 18 145/78 95 Room Air 0 11/26/22 11:27 11/26/22 08:40 11/26/22 11:27 11/26/22 11:27 11/26/22 11:27 11/26/22 11:27 11/23/22 13:01 Period Temp Pulse Resp BP Sys/Weldon Pulse Ox O2 Del Method O2 Flow Rate Last 24 Hr 97.6 F-98.8 F 72-80 18-20 140-158/71-83 94-96 Room Air-Room Air Intake and Output 11/26/22 11/26/22 11/26/22 03:59 11:59 19:59 Intake Total 550 500 Balance 550 500 Weight 108 kg Intake & Output: Intake & Output 11/26/22 11/26/22 11/26/22 03:59 11:59 19:59 Intake Total 550 500 Balance 550 500 Weight 108 kg Intake: IV 500 Vancomycin 1,500 mg In Sodium 500 Chloride 0.9% 500 ml @ 333.3 mls/hr IV Q12H [facility] Rx#: [id number] Oral 550 Other: # Voids 2 General appearance: cooperative and no acute distress Additional findings Additional findings: Cultures pending A/P Assessment and plan (1) Calculus of right ureter: Status: Acute (2) Acute UTI: Status: Acute Plan Patient doing well from a urologic standpoint. He is stable for discharge when otherwise felt to be ready. Patient should be scheduled for follow-up in my office 1 week after discharge. Time Spent With Patient Time: Total time spent is greater than 50% in coordination of care (as documented) at patient's floor/unit and/or counseling patient:
[2022-11-26] MEDS: TAMSULOSIN 0.4 MG CAPSULE PO SCH (20:52)
[2022-11-27] MEDS: VANCOMYCIN 1,500 MG in 0.9 % SODIUM CHLORIDE 500 ML IV SCH ×2 (00:15→13:23)
[2022-11-27] MEDS: 0.9 % SODIUM CHLORIDE 10 ML SYRINGE IV SCH ×3 (06:10→21:26)
[2022-11-27] MEDS: DOCUSATE SODIUM 100 MG CAPSULE PO SCH ×2 (08:35→21:26)
[2022-11-27] MEDS: ENOXAPARIN 40 MG/0.4 ML SYRINGE SQ SCH (08:35)
[2022-11-27] MEDS: ATORVASTATIN 40 MG TABLET PO SCH (08:35)
[2022-11-27] MEDS: HYDROCHLOROTHIAZIDE 12.5 MG CAPSULE PO SCH ×2 (08:36→09:48)
[2022-11-27] MEDS: METOPROLOL SUCCINATE 25 MG TAB.XL.24H PO SCH (09:48)
--- NOTE | 2022-11-27 12:27 | Infectious Disease Consult ---
HPI Date of Consult Consult Date: 11/27/22 Primary Care Provider: Jose Raul Lizama Consult Narrative Patient Information: Note initiated : 11/27/22 at 12:22 pm Service Date, if different from initiated Date: [] Patient: Marcus Gilbert 71 y/o M admitted on 11/23/22 for Flank pain. Chief Complaint: [] cc:: CC: Zaid Jones This was a telemedicine consult from a telemedicine office and patient consented himself ID is consulted for coagulase-negative staph bacteremia, genitourinary focus of infection with nephrolithiasis, status post right ureteral stenting Patient was having fever with right flank pain at arrival with leukocytosis Hemodynamically stable and lactate was normal Urinary cultures and blood culture positive for coagulase-negative staph, pansensitive ID is consulted to facilitate discharge Overall patient is feeling much better Physical examination is benign Review of Systems All systems: reviewed and no additional remarkable complaints except as stated PFSH PFSH All Active Problems (Updated 11/27/22 @ 12:24 by Luis Mccarthy MD) Bacteremia (Acute) Benign prostatic hyperplasia (BPH) with urinary urgency (Chronic 11/10/13) History of colonic polyps (Chronic) Diverticulosis of colon (Chronic) Gout (Chronic) Impotence, 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) Renal calculi (Chronic 11/17/13) Sleep apnea (Chronic) Degenerative arthritis of right knee (Chronic) Obesity (Chronic) Chronic vasomotor rhinitis (Chronic) Cholelithiasis and cholecystitis without obstruction (Chronic) Hypertension, essential (Chronic) Hearing loss (Chronic) Kidney stones (Acute) Ureteral colic (Acute) Ureteral stone with hydronephrosis (Acute) Acute kidney injury (Acute) Chest pain (Acute) BPH w urinary obs/LUTS (Chronic) Prostate cancer screening (Acute) Right flank pain (Acute) Elevated PSA, less than 10 ng/ml (Acute) Hydronephrosis, right (Chronic) Ureteral stricture (Chronic) Abdominal pain (Acute) Gross hematuria (Acute) Calculus of right ureter (Acute) Hydronephrosis, right (Acute) Leukocytosis (Acute) Acute UTI (Acute) Medical History Benign prostatic hyperplasia (BPH) with urinary urgency (11/10/13) Cholelithiasis and cholecystitis without obstruction Chronic vasomotor rhinitis Degenerative arthritis of right knee Diverticulosis of colon Gout Hearing loss History of colonic polyps Hydronephrosis, right Hypertension, essential Impotence, organic (11/10/13) Kidney stones Obesity BMI 36 - Renal calculi (11/17/13) Renal cyst (11/17/13) Sleep apnea Surgical History History of cholecystectomy 07/18/2018-open cholecystectomy with control of bleeding History of colonoscopy (08/11/13) TA, HP History of surgery Lithotripsy Status post anterior cruciate ligament surgery Family History Unknown Atherosclerosis of coronary artery Maternal Grandfather Cardiac abnormality pacemaker - gm, acute [place] - gf Maternal Grandmother Cardiac abnormality Father Malignant neoplasm of prostate Calculus of kidney Brother Calculus of kidney Social History household members: spouse housing: house marital status: occupational status: retired occupation: Retired from commercial sales and self-employment smoking status: Former smoker alcohol intake frequency: does not drink MEDS/ALLERGIES Home Medications and Allergies Home Medications Medication Instructions Recorded Confirmed Type CPAP machine, 12cm H2O pressure 1 unit .Route HS 07/18/18 11/23/22 History aspirin 81 mg tablet,delayed 81 mg PO QDAY 07/31/21 11/23/22 History release atorvastatin 40 mg tablet 40 mg PO QAM 07/31/21 11/23/22 History metoprolol succinate 25 mg 25 mg PO QAM 07/31/21 11/23/22 History tablet,extended release 24 hr hydrochlorothiazide 12.5 mg tablet 12.5 mg PO QAM 08/23/21 11/23/22 History multivitamin 1 tab PO QAM 08/23/21 11/23/22 History tamsulosin 0.4 mg capsule 0.4 mg PO HS #30 caps 02/14/22 11/23/22 Rx Allergies Allergy/AdvReac Type Severity Reaction Status Date / Time No Known Drug Allergies Allergy Verified 11/23/22 01:49 Physical Examination Vital Signs Vital signs: Temp Pulse Resp BP Pulse Ox O2 Del Method O2 Flow Rate 97.8 F 72 20 153/80 95 Room Air 0 11/27/22 08:00 11/27/22 08:00 11/27/22 08:00 11/27/22 08:00 11/27/22 08:00 11/27/22 08:00 11/23/22 13:01 Constitutional General appearance: no acute distress EENT Eyes pulmonary: nonicteric Respiratory Auscultation: bilateral: clear Cardiovascular Cardiovascular: regular rate and rhythm Gastrointestinal Gastrointestinal: normoactive bowel sounds Musculoskeletal Musculoskeletal: other Additional Exam Additional exam: Bilateral pedal edema noted Results Laboratory Findings 11/24/22 05:27 11/24/22 05:27 ABG, PT/INR, D-dimer: PT/INR, D-dimer PT 13.5 sec (11.9-14.5) 11/23/22 08:50 INR 1.0 (0.9-1.1) 11/23/22 08:50 Abnormal lab findings: Abnormal Labs 11/23/22 11/23/22 11/23/22 01:58 02:26 03:00 WBC 16.8 H RBC Neut % (Auto) 84.3 H Lymph % (Auto) 4.8 L [place] % (Auto) Lymph # (Auto) 0.81 L [place] # (Auto) 1.69 H Immature Gran # 0.07 H Absolute Neutrophils 14.16 H POC VBG pCO2 at Temp POC VBG pO2 POC VBG HCO3 POC Venous O2 Sat POC BUN 24 H POC Creatinine 1.3 H POC Glucose 130 H Total Protein Urine Appearance Hazy A Urine Glucose (UA) 150 A Urine Ketones 5 A Ur Leukocyte Esterase 500 A Urine RBC 16 H Urine WBC 77 H Urine Bacteria Few A Urine Mucus Few A 11/23/22 11/24/22 11/24/22 03:51 05:27 05:27 WBC RBC 4.61 L Neut % (Auto) Lymph % (Auto) 10.6 L [place] % (Auto) 17.9 H Lymph # (Auto) 0.89 L [place] # (Auto) 1.51 H Immature Gran # Absolute Neutrophils POC VBG pCO2 at Temp 40.1 L POC VBG pO2 62 H POC VBG HCO3 23.9 L POC Venous O2 Sat 91.0 H POC BUN POC Creatinine POC Glucose Total Protein 5.8 L Urine Appearance Urine Glucose (UA) Urine Ketones Ur Leukocyte Esterase Urine RBC Urine WBC Urine Bacteria Urine Mucus Microbiology: Microbiology 11/23/22 03:37 Blood Blood Culture - Preliminary Coagulase negative staph 11/24/22 15:46 Blood Blood Culture - Preliminary 11/24/22 15:37 Blood Blood Culture - Preliminary 11/23/22 03:00 Urine - Clean Void Mid-Stream Urine Culture - Final Coagulase negative staph 11/23/22 03:45 Blood Blood Culture - Preliminary Gram positive cocci 11/23/22 09:11 Nose MRSA (PCR) - Final A/P Assessment and plan (1) Bacteremia: Assessment and plan: 71-year-old male patient is admitted with fever, leukocytosis, UTI, nephrolithiasis, right ureteral stenting Leukocytosis coming down Creatinine improved Urine culture and blood culture positive for coagulase-negative staph, pansensitive Discharge planning underway No suprapubic or flank tenderness No Glover catheter Bilateral pedal edema Plan: I discussed this case with the primary attending on the phone The coagulase-negative staph is pansensitive Hopefully sensitive to tetracycline too Primary attending will discuss with the lab and ask them to run a sensitivity to tetracycline Ideally we prefer to treat coagulase-negative staph or gram-positive cocci bacteremia with IV antibiotics However given the uncomplicated nature of this patient's presentation with a negative echo and repeat blood cultures being negative and the patient being absolutely asymptomatic with otherwise no other hardware anywhere else, I think we can discharge him on oral doxycycline 100 mg twice a day for 10 days to 2 weeks However we got to wait for the sensitivity of the doxycycline to come out tomorrow I had a lengthy discussion with the patient Told him to take Doxy on empty stomach with a lot of water and not to mix Doxy with dairy , Vitamins and minerals If patient develops fever chills rigors etc., he will come back to the hospital regarding the pedal edema in the legs - Will defer this to the primary team about a venous dopplers need ID will sign off Please reconsult us if need be Status: Acute Time Spent With Patient Time: Total time spent is greater than 50% in coordination of care (as documented) at patient's floor/unit and/or counseling patient:
[2022-11-27] MEDS: cefTRIAXone 1 GM VIAL IV SCH (13:16)
[2022-11-27] MEDS ORDERED: fentaNYL 100 MCG/2 ML VIAL IV ONE (13:25)
[2022-11-27] MEDS ORDERED: PROPOFOL 200 MG/20 ML VIAL IV ONE (13:25)
[2022-11-27] MEDS ORDERED: LIDOCAINE HCL/PF 100 MG/5 ML SYRINGE IV ONE (13:25)
[2022-11-27] MEDS ORDERED: ONDANSETRON 4 MG/2 ML VIAL ONE (13:25)
[2022-11-27] MEDS ORDERED: GLYCOPYRROLATE 0.2 MG/ML VIAL IV ONE (13:25)
[2022-11-27] MEDS ORDERED: DEXAMETHASONE 10 MG/ML VIAL ONE (13:25)
[2022-11-27] MEDS ORDERED: PHENYLephrine 1 MG/10 ML SYRINGE (ANEST) ONE (13:25)
[2022-11-27] MEDS ORDERED: KETAMINE 50 MG/ML Syringe (ANEST) IV ONE (13:25)
[2022-11-27] MEDS ORDERED: MAGNESIUM SULFATE 2 GM/50 ML BAG IV ONE (13:25)
[2022-11-27] MEDS ORDERED: IPRATROPIUM/ALBUTEROL 3 ML AMPUL.NEB NEB PRN (13:51)
[2022-11-27] MEDS ORDERED: METOPROLOL TARTRATE 5 MG/5 ML VIAL IV PRN (13:51)
[2022-11-27] MEDS ORDERED: MEPERIDINE 25 MG/ML VIAL IV PRN (13:51)
[2022-11-27] MEDS ORDERED: ACETAMINOPHEN 1,000 MG/100 ML BAG IV ONE (13:51)
[2022-11-27] MEDS ORDERED: fentaNYL 100 MCG/2 ML VIAL IV PRN (13:51)
[2022-11-27] MEDS ORDERED: LABETALOL 5 MG/ML ML IV PRN (13:51)
[2022-11-27] MEDS ORDERED: NALOXONE HCL 0.4 MG/ML VIAL IV PRN (13:51)
[2022-11-27] MEDS ORDERED: LACTATED RINGERS 250 ML IV PRN (13:51)
[2022-11-27] MEDS ORDERED: METHOCARBAMOL 1,000 MG/10 ML VIAL IV PRN (13:51)
[2022-11-27] MEDS ORDERED: LACTATED RINGERS 1,000 ML IV SCH (14:00)
--- NOTE | 2022-11-27 14:14 | Operative Note ---
Brief Operative Note Date of procedure: 11/27/22 Pre-op diagnosis: Right ureteral stone Post-op diagnosis: other (Right ureteral stone and right ureteral stricture) Procedure: Cystoscopy, right ureteral stent removal, retrograde pyelography, right ureteroscopy, stone extraction, balloon dilation of stricture, and placement of right ureteral stent Grafts/Implants: Yes (7 Indian by 24 cm stent with tether attached) Anesthesia: GLMA Findings: Significant stricture in the right distal ureter. Large volume of gravel in the right distal ureter. At the end of the procedure a 7 Indian by 24 cm stent was placed with a tether attached Complications: none Surgeon: Jamel Quiroz Estimated blood loss (cc): 0 Specimens Removed/Pathology: none sent Condition: stable Disposition: PACU Operative Note Operative Note: After obtaining consent the patient taken the operating room where general anesthesia was induced. Patient was placed in dorsal thigh position prepped and draped in sterile fashion. Well-lubricated cystoscope was placed in patient's bladder and cystourethroscopy performed with above-noted findings. The indwelling stent was grasped through the urethral meatus. A sensor wire was passed via the indwelling stent into the patient's renal pelvis under fluoroscopic guidance. Indwelling stent was removed. A dual-lumen catheter was then passed over the guidewire into the patient's distal ureter and a retrograde pyelogram was obtained with the stricture noted. Dual-lumen catheter was removed and the guidewire was clipped to the drapes as a safety wire. Using a semirigid ureteroscope scope was advanced into the patient's ureter and was able to be negotiated past the strictured segment into the mid ureter where a large amount of gravel was noted. Ureteroscope was removed and a UroMax balloon was advanced over the guidewire into the patient's distal ureter across the stricture and the balloon inflated. Stricture open quite easily. The balloon catheter was then removed again the guidewire was clipped to the drape as a safety wire and again the semirigid ureteroscope was advanced into the patient's ureter. Stone was visualized and using a helical basket a large amount of stone gravel was swept into the patient's bladder. At this time the safety wire was backloaded on the cystoscope and a 7 Indian by 24 cm stent was advanced over the guidewire with a proximal curl in the renal pelvis distal and the patient's bladder guidewire was removed. Bladder was drained. Patient was awoken and taken to postanesthesia recovery in stable condition
[2022-11-27] MEDS ORDERED: LIDOCAINE 2% URO-JET 10 ML JEL.PF.APP UR ONE (14:29)
--- NOTE | 2022-11-27 16:34 | XRay Report ---
CLINICAL INFORMATION: Laser lithotripsy. Two stones in distal right ureter at the iliac crossing COMPARISON: None. FINDINGS: Digital images, submitted from the OR show right retrograde ureterogram. Final images show superior aspect of a right ureteral stent overlying the renal pelvis which appears to be hydronephrotic. Total fluoroscopy time 1.8 minutes IMPRESSION: Right hydronephrosis due to obstructing stones the iliac crossing. Right ureteral stent successfully placed. Total fluoroscopy time 1.8 minutes Interpreted and Authenticated by: Sunil Muñoz 11/27/22
--- NOTE | 2022-11-27 19:17 | Internal Med Progress Note ---
SUBJECTIVE Subjective Patient information: Note initiated : 11/27/22 at 7:16 pm Service Date, if different from initiated Date: [] Patient: Marcus Gilbert a 71 y/o M admitted on 11/23/22 for Flank pain. Chief Complaint: [] Interval history: History of present illness: Mr. Gilbert is a 71 year old M Presents the ED with severe right flank pain. Patient states it started developed right flank pain yesterday afternoon. He has had an episode of nausea vomiting x1 because of the pain. Denies fever chills. In the ED he was evaluated found to have 2 stones in the right distal ureter measuring 10 and 7 mm with obstruction causing hydroureter and hydronephrosis and renal edema. He is found have a leukocytosis 16,000. Lactate and vital signs are okay. Dr. Quiroz was contacted and will perform stent placement and requested the patient be admitted to monitor. Patient started on IV antibiotics and fluids in the ED. 3/ Patient feeling a little better. Had ureteral stent placed on the right. Did have fever last night. Has peripheral edema states this is common for him. Leukocytosis improving. Renal function improving. Patient was febrile overnight. MRSA screen negative. Awaiting urine culture and blood cultures. 3/ Patient slept better. Feeling a little better. Blood cultures on admission growing gram-positive cocci in clusters. Repeat blood cultures drawn yesterday. Will need IV therapy if staph aureus. Echo pending. Urine culture still pending. 3/ afebrile o/n. Feeling better. No overnight event or new complaints. Awaiting follow-up blood cultures. Urine culture with coag negative staph. Awaiting final identities on the blood cultures. 11/27 No significant events overnight, afebrile. Urology plans to remove the ureteral stone prior to discharge. Consulted telemetry infectious disease inform on antibiotic management for coagulase negative staph bacteremia. Echocardiogram did not show any obvious valvular vegetations. Physical exam Head: Atraumatic, normal inspection. Eyes: normal appearance, no scleral icterus. Neck: full ROM Respiratory: no respiratory distress. Cardiovascular: normal rate GI/Abdominal: soft, nontender, no guarding. Extremities: full range of motion, nontender. Neurological: CN II-XII intact, intact motor, intact sensation. Psychiatric: normal mood. Skin: warm, normal color Constitutional Vitals: Vital Signs Temp Pulse Resp BP Pulse Ox O2 Del Method O2 Flow Rate 97.5 F 74 20 146/79 95 Room Air 2 11/27/22 16:00 11/27/22 16:00 11/27/22 16:00 11/27/22 16:00 11/27/22 16:00 11/27/22 16:00 11/27/22 14:21 Period Temp Pulse Resp BP Sys/[place]don Pulse Ox O2 Del Method O2 Flow Rate Last 24 Hr 97.2 F-98.4 F 69-88 12-22 111-183/77-110 92-97 Nasal Cannula- Room Air 2-5 Intake and Output 11/27/22 11/27/22 11/27/22 03:59 11:59 19:59 Intake Total 950 1250 Output Total 400 805 Balance 550 445 Weight 106.866 kg Intake & Output: Intake & Output 11/27/22 11/27/22 11/27/22 03:59 11:59 19:59 Intake Total 950 1250 Output Total 400 805 Balance 550 445 Weight 106.866 kg Intake: IV 500 600 Vancomycin 1,500 mg In Sodium 500 500 Chloride 0.9% 500 ml @ 333.3 mls/hr IV Q12H [facility] Rx#: [id number] Oral 450 IV - Manual Only 650 Output: Void Amount 400 800 Estimated Blood Loss 5 Other: Urine Color Light Booth Urine Odor Strong # Voids 2 OBJ DATA Labs 11/24/22 05:27 11/24/22 05:27 Meds: Medications Acetaminophen (Acetaminophen 325 Mg Tablet) 650 mg PO Q6HP PRN; Protocol PRN Reason: Per Pain Protocol/Fever > 101 Last Admin: 11/24/22 19:48 Dose: 650 mg Hydrocodone Bitart/Acetaminophen (Hydrocodone/Apap 5/325mg Tablet) 1 tab PO Q4HP PRN PRN Reason: PAIN LEVEL 3-6 Albuterol/Ipratropium (Ipratropium/Albuterol 3 Ml Ampul.Neb) 3 ml NEB Q4HP PRN PRN Reason: Shortness Of Breath Atorvastatin Calcium (Atorvastatin 40 Mg Tablet) 40 mg PO QAM [facility] Last Admin: 11/27/22 08:35 Dose: Not Given Ceftriaxone Sodium (Ceftriaxone 1 Gm Vial) 1 gm IV Q24H [facility] Last Admin: 11/27/22 13:16 Dose: 1 gm Docusate Sodium (Docusate Sodium 100 Mg Capsule) 100 mg PO BID [facility] Last Admin: 11/27/22 08:35 Dose: Not Given Enoxaparin Sodium (Enoxaparin 40 Mg/0.4 Ml Syringe) 40 mg SQ DAILY [facility] Last Admin: 11/27/22 08:35 Dose: Not Given Hydrochlorothiazide (Hydrochlorothiazide 12.5 Mg Capsule) 12.5 mg PO QAM [facility] Last Admin: 11/27/22 09:48 Dose: 12.5 mg Potassium Chloride 40 meq/ (Dextrose) 520 mls @ 130 mls/hr IV UD PRN PRN Reason: Potassium < 3 Magnesium Sulfate (Magnesium Sulfate) 2 gm in 50 mls @ 50 mls/hr IV UD PRN PRN Reason: Magnesium </= 1.6 Vancomycin HCl 1,500 mg/ (Sodium Chloride) 500 mls @ 333.3 mls/hr IV Q12H [facility] Last Infusion: 11/27/22 14:09 Dose: Infused Labetalol HCl (Labetalol 5 Mg/Ml Ml) 0 mg IV Q2HP PRN PRN Reason: Hypertension Last Admin: 11/27/22 15:44 Dose: 10 mg Metoprolol Succinate (Metoprolol Succinate 25 Mg Tab.Xl.24h) [facility] [place] Last Admin: 11/27/22 09:48 Dose: 25 mg Morphine Sulfate (Morphine 2 Mg/Ml Vial) 2 mg IV Q4HP PRN; Protocol PRN Reason: Per Pain Protocol Ondansetron HCl (Ondansetron 4 Mg/2 Ml Vial) 4 mg IV Q4HP PRN; Protocol PRN Reason: Nausea And Vomiting Polyethylene Glycol (Polyethylene Glycol 3350 17 Gm Packet) 17 gm PO DAILYP PRN PRN Reason: Constipation Last Admin: 11/24/22 21:08 Dose: 17 gm Potassium Chloride (Potassium Chloride 20 Meq Tablet) 40 meq PO UD PRN PRN Reason: Potssium is 3-3.5 Potassium Chloride (Potassium Chloride 20 Meq Tablet) 40 meq PO UD PRN PRN Reason: Potassium < 3 Senna (Sennosides 1 Tablet) 2 tab PO DAILYP PRN PRN Reason: Constipation Sodium Chloride (0.9 % Sodium Chloride 10 Ml Syringe) 10 ml IV Q8 [facility] Last Admin: 11/27/22 14:45 Dose: Not Given Tamsulosin HCl (Tamsulosin 0.4 Mg Capsule) 0.4 mg PO [facility] Last Admin: 11/26/22 20:52 Dose: 0.4 mg Vancomycin HCl (Vancomycin Per Pharmacy) 1 order IV UD [facility]; Protocol A/P Narrative A/P Narrative: A: *R hydroureter/hydronephrosis: 2/2 obstructing stones x2. s/p R uretural stent (3) *Ureteral stones obstructing distal right ureter x2: s/p stenting *DERIC on CKD II: 2/2 above, now improving *UTI(coag neg staph): 2/2 above *Bacteremia(GPC in clusters): -echo *Sepsis(febrile/tachycardia/leukocytosis): -tmax 100.5 past 24h *BPH: *HTN: *LAURA on CPAP: *Obesity: BMI 36 *Peripheral edema: P: -Vancomycin IV and Rocephin, pending urine and blood culture sensitivities. -Antibiotic treatment likely 14-day course, possibly oral antibiotic option. -Tele ID consulted. -IVF d/c -serial BC, vanco pending I&S -Follow-up renal function, monitor UOP -Follow-up CBC. Follow-up blood cultures. -Monitor chemistry and replace electrolytes as needed -Home CPAP -Continue home BB, restart HCTZ -Urology planning to remove ureteral stone this hospitalization. -ppx: lovenox Time Spent With Patient Time: Total time spent is greater than 50% in coordination of care (as documented) at patient's floor/unit and/or counseling patient:
[2022-11-27] MEDS: TAMSULOSIN 0.4 MG CAPSULE PO SCH (21:26)
[2022-11-28] MEDS: VANCOMYCIN 1,500 MG in 0.9 % SODIUM CHLORIDE 500 ML IV SCH (00:22)
[2022-11-28] MEDS: 0.9 % SODIUM CHLORIDE 10 ML SYRINGE IV SCH (06:48)
--- NOTE | 2022-11-28 08:24 | Discharge Summary ---
Discharge Provider Provider IMPORTANT FOLLOW-UP INFORMATION FOR PCP: Patient information: Note initiated : 11/28/22 at 8:19 am Service Date, if different from initiated Date: [] Patient: Marcus Gilbert a 71 y/o M admitted on 11/23/22 for Flank pain. Chief Complaint: [] Date of admission: 11/23/22 09:57 Discharge date: 11/28/22 Primary care physician: Jose Raul Lizama Consults: 11/23/22 Consult to Physician [CONS] Stat Comment: Consulting Provider: Jamel Quiroz Reason For Exam: Physician to Consult Consult to Physician [CONS] Stat Comment: Consulting Provider: Zaid Jones Reason For Exam: Physician to Consult 11/27/22 11:27 Consult to Physician [CONS] Routine Comment: Consulting Provider: Rush Kennedy - ID Reason For Exam: Physician to Consult COURSE Hospital Course Hospital course: Mr. Gilbert is a 71 year old M Presents the ED with severe right flank pain. Patient states it started developed right flank pain yesterday afternoon. He has had an episode of nausea vomiting x1 because of the pain. Denies fever chills. In the ED he was evaluated found to have 2 stones in the right distal ureter measuring 10 and 7 mm with obstruction causing hydroureter and hydronephrosis and renal edema. He is found have a leukocytosis 16,000. Lactate and vital signs are okay. Dr. Quiroz was contacted and will perform stent placement and requested the patient be admitted to monitor. Patient started on IV antibiotics and fluids in the ED. 3/4 Patient feeling a little better. Had ureteral stent placed on the right. Did have fever last night. Has peripheral edema states this is common for him. Leukocytosis improving. Renal function improving. Patient was febrile overnight. MRSA screen negative. Awaiting urine culture and blood cultures. 3/5 Patient slept better. Feeling a little better. Blood cultures on admission growing gram-positive cocci in clusters. Repeat blood cultures drawn yesterday. Will need IV therapy if staph aureus. Echo pending. Urine culture still pending. 3/6 afebrile o/n. Feeling better. No overnight event or new complaints. Awaiting follow-up blood cultures. Urine culture with coag negative staph. Awaiting final identities on the blood cultures. 11/27 No significant events overnight, afebrile. Urology plans to remove the ureteral stone prior to discharge. Consulted telemetry infectious disease inform on antibiotic management for coagulase negative staph bacteremia. Echocardiogram did not show any obvious valvular vegetations. 11/28 Vital stable overnight, the right ureteral stone was removed yesterday by urology, the stent was replaced after the stone was removed. Infectious disease recommended treating the patient's coagulase negative staphylococcal UTI and bacteremia with oral doxycycline. The patient has been in the hospital receiving appropriate IV antibiotics for about 4 days, will continue antibiotic treatment with doxycycline for 10 more days to complete about 14 days of treatment. The patient will discharge to home and follow-up with urology in clinic. All other prior home medications continued at discharge. Physical exam Head: Atraumatic, normal inspection. Eyes: normal appearance, no scleral icterus. Neck: full ROM Respiratory: no respiratory distress. Cardiovascular: normal rate GI/Abdominal: soft, nontender, no guarding. Extremities: Bilateral pitting edema, full range of motion, nontender. Neurological: CN II-XII intact, intact motor, intact sensation. Psychiatric: normal mood. Skin: warm, normal color Discharge diagnosis: Sepsis secondary to pyelonephritis complicated by bacteremia Secondary discharge diagnosis: UTI secondary to coagulase-negative Staphylococcus Bacteremia secondary to coagulase-negative Staphylococcus Obstructing right ureteral stone status post stone removal and ureteral stent placement Time Spent with Patient Time attestation: Total time spent providing and/or coordinating discharge services: Time spent: Greater than 30 minutes EXAM Constitutional Vitals: Temp Pulse Resp BP Pulse Ox O2 Del Method O2 Flow Rate 97.5 F 81 20 153/90 94 Room Air 2 11/28/22 07:54 11/28/22 07:54 11/28/22 07:54 11/28/22 07:54 11/28/22 07:54 11/28/22 07:54 11/28/22 06:01 Discharge Data Data Completed and Pending Labs on day of discharge: Labs from last 24 hours 11/27/22 12:08 Vancomycin Trough 16.6 Preliminary micro results at discharge 11/24/22 15:46 Blood Culture - Preliminary Blood 11/24/22 15:37 Blood Culture - Preliminary Blood Discharge Plan Patient/Caregiver Discharge Instructions Activity: increase activity as tolerated Diet: Regular Diet Prescriptions: New doxycycline hyclate 100 mg Tablet 100 mg PO BID 10 Days Qty: 20 0RF Continued tamsulosin 0.4 mg capsule 0.4 mg PO HS Qty: 30 12RF Patient Comments: currently not taking (took a "few" times after last surgery) CPAP machine, 12cm H2O pressure 1 unit .Route HS Rx Instructions: use to prevent sleep apnea multivitamin Tablet 1 tab PO QAM hydrochlorothiazide 12.5 mg tablet 12.5 mg PO QAM atorvastatin 40 mg tablet 40 mg PO QAM metoprolol succinate 25 mg tablet extended release 24 hr 25 mg PO QAM aspirin 81 mg tablet,delayed release (DR/EC) 81 mg PO QDAY Follow Up Plan Follow up with: Jamel Quiroz MD [Physician] - 01/23/23 (Post hospital follow up for ureteral stone s/p removal and ureteral stent placement. ) Jose Raul Lizama MD [Primary Care Provider] - Patient Disposition: Home, Self-Care Prognosis: Fair Overall status at discharge: patient is progressing back to baseline Discharge Orders: Discharge Order (Routine); Ordered 11/28/22 Ordered By: Horacio Saba
[2022-11-28] MEDS: HYDROCHLOROTHIAZIDE 12.5 MG CAPSULE PO SCH (08:50)
[2022-11-28] MEDS: ATORVASTATIN 40 MG TABLET PO SCH (08:50)
[2022-11-28] MEDS: METOPROLOL SUCCINATE 25 MG TAB.XL.24H PO SCH (08:50)
[2022-11-28] MEDS: DOCUSATE SODIUM 100 MG CAPSULE PO SCH (08:50)
[2022-11-28] MEDS: ENOXAPARIN 40 MG/0.4 ML SYRINGE SQ SCH (08:56)
[2022-11-28] MEDS ORDERED: DOXYCYCLINE HYCLATE 100 MG TABLET.ORL PO SCH (09:00)
== END 2022-11-28 10:37 | disposition home or self-care (01) | DRG 854 ==
LOC: MEDSUR 01:43 → ED 01:43 → MEDSUR 09:55 → OBSVTOIN 09:57 → MEDSUR 13:05
PROVIDERS: ADMIT Internal Medicine; ATTEND Internal Medicine